=== PATIENT | female | born 1995 | race African-American/Black ===

== ENCOUNTER 2016-10-14 19:12 | Emergency (ER) | payer OTHER ==
[~2016-10-14] VITALS: Ht 162.6 cm; Wt 61.2 kg
[~2016-10-14 19:12] MED LIST: IBUPROFEN600 MG ORAL; KEFLEX500 MG ORAL; MACROBID100 MG ORAL; METRONIDAZOLE500 MG ORAL; NKM; PRENATAL 19 CH1 EAC1 PO; ZOFRAN ODT4 MG ORAL
[2016-10-14 19:37] VITALS: BP 118/65
[2016-10-14 21:56] LABS: APPEARANCE,URINE CLEAR; KETONES,URINE NEGATIVE (NEGATIVE); LEUKOCYTE ESTERASE ,URINE 2+ (NEGATIVE); NITRITE,URINE NEGATIVE (NEGATIVE); PH,URINE 7 (4.5-8.0); PROTEIN,URINE NEGATIVE (NEGATIVE); UROBILINOGEN,URINE NORMAL MG/DL (0.0-1.0)
--- NOTE | 2016-10-14 22:00 | Emergency Room Report ---
History of Present Illness General Chief Complaint: Vaginal Source: Patient, Medical Record Present Illness HPI 21 YO Female Patient c/o vaginal d/c milky white with odor x 3 weeks, denies recent unprotected intercourse, or new partners. She denies nausea, vomiting, fevers, chills, rashes, dyspareunia, . Patient states she is finishing her period currently. Patient reports intermittent malodor. Denies itching, lesions or history of STI's. Denies dysuria, frequency, hematuria, urgency. Denies CP, Palpitations, LOC, AMS, dizziness, Changes in Vision, Sensation, paresthesias, or a sudden severe headache. Allergies: Coded Allergies: No Known Allergies (Unverified , 09/18/12) Patient History Past Medical History: see triage record Past Surgical History: none Pertinent Family History: none Last Menstrual Period: 10/10/16 Now: No Immunizations: UTD Reviewed Nursing Documentation: PMH: Agreed, PSxH: Agreed Nursing Documentation-PMH Past Medical History: No History, Except For Review of Systems All Other Systems: negative except mentioned in HPI Physical Exam Vital Signs Date Time Temp Pulse Resp B/P Pulse Ox O2 Delivery O2 Flow Rate FiO2 10/14/16 19:33 97.9 71 16 118/65 100 Room Air Sp02 EP Interpretation: reviewed, normal General Appearance: no apparent distress, alert, GCS 15, non-toxic Head: normocephalic, atraumatic Eyes: bilateral eye PERRL, bilateral eye normal inspection ENT: hearing grossly normal, normal pharynx, no angioedema, normal voice Neck: full range of motion, supple/symm/no masses Respiratory: chest non-tender, lungs clear, normal breath sounds, speaking full sentences Cardiovascular #1: regular rate, rhythm, no edema Gastrointestinal: normal bowel sounds, non tender, soft, no guarding, no rebound Rectal: deferred Genitourinary: normal inspection, no CVA tenderness, adnexa normal, cervix normal, ext genitalia/vag normal, os closed, other - dark blood and milky white vaginal d/c noted, no strawberry cervix, no CMT Musculoskeletal: back normal, gait/station normal, normal range of motion, non- tender, no calf tenderness Neurologic: alert, oriented x3, responsive, motor strength/tone normal, sensory intact, speech normal Psychiatric: judgement/insight normal, memory normal, mood/affect normal, no suicidal/homicidal ideation Skin: normal color, no rash, warm/dry, well hydrated Lymphatic: no adenopathy Medical Decision Making PA Attestation Dr. Aldridge is my supervising Physician whom patient management has been discussed with. Diagnostic Impression: Primary Impression: Bacterial vaginosis ER Course Pt. presents to the ED c/o vaginal d/c milky white with odor x 3 weeks, denies recent unprotected intercourse, or new partners. Ddx considered but are not limited to UTi , STI, G & C, trichomonas,BV, Vaginitis, cervicitis, or cellulitis. Vital signs: are WNL, pt. is afebrile H&PE are most consistent with vaginitis ORDERS: - HCG:negative -UA: no evidence of urinary tract infection. -Vaginal wet Mount: moderate clue cells, no yeast, no trich, bacteria is noted. ED INTERVENTIONS: -none required at this time d/w pt. the results of laboratory work. -d/w pt not to drink ETOH while taking antibiotic. DISCHARGE: At this time pt. is stable for d/c to home. Will provide printed patient care instructions, and any necessary prescriptions. Care plan and follow up instructions have been discussed with the patient prior to discharge. Labs Test 10/14/16 21:25 Urine Color Pale yellow Urine Appearance Clear Urine pH 7 (4.5-8.0) Urine Specific [place] 1.005 (1.005-1.035) Urine Protein Negative (NEGATIVE) Urine Glucose (UA) Negative (NEGATIVE) Urine Ketones Negative (NEGATIVE) Urine Occult Blood 2+ (NEGATIVE) Urine Nitrite Negative (NEGATIVE) Urine Bilirubin Negative (NEGATIVE) Urine Urobilinogen Normal MG/DL (0.0-1.0) Urine Leukocyte Esterase 2+ (NEGATIVE) Urine RBC 2-4 /HPF (0 - 2) Urine WBC 5-10 /HPF (0 - 2) Urine Squamous Epithelial Cells Moderate /LPF (NONE/OCC) Urine Bacteria Few /HPF (NONE) Urine HCG, Qualitative Negative Last Vital Signs Date Time Temp Pulse Resp B/P Pulse Ox O2 Delivery O2 Flow Rate FiO2 10/14/16 19:37 97.9 16 118/65 100 Room Air 10/14/16 19:33 71 Disposition: HOME, SELF-CARE Condition: Stable Scripts Metronidazole* (FLAGYL*) 500 Mg Tablet 500 MG ORAL BID, #14 TAB 0 Refills Prov: Angela Hamilton 10/14/16 Referrals: [facility] (PCP) Patient Instructions: Bacterial Vaginosis Additional Instructions: Take medications as directed. Follow up with PCP in 3-5 days Return sooner to ED if new symptoms occur, or current symptoms become worse. Do not drink alcohol while taking metronidazole/flagyl Angela Hamilton Oct 14, 2016 22:00
[2016-10-14 22:12] LABS: BACTERIA,URINE FEW /HPF; SQUAMOUS EPITHELIAL CELL,UR MODERATE /LPF (NONE/OCC)
[2016-10-14] MEDS ORDERED: METRONIDAZOLE500 MG ORAL (22:21)
[2016-10-14 22:38] VITALS: BP 105/53
== END 2016-10-14 22:41 | disposition home or self-care (01) ==
LOC: EMR 20:24
DX: N76.0 Acute vaginitis (principal)
CPT/HCPCS: 81003; 81025; 87210; 99282

== ENCOUNTER 2017-02-24 13:51 | Emergency (ER) | payer OTHER ==
[~2017-02-24] VITALS: Ht 162.6 cm; Wt 61.2 kg
[2017-02-24] MEDS ORDERED: Bacitracin Oint UD TOPIC ONE (14:15)
[2017-02-24] MEDS ORDERED: Lidocaine 1% 10mg/ml/Epi 0.005mg/ml 30ml vial INJ ONE (14:15)
[2017-02-24] MEDS ORDERED: TdaP Vaccine 0.5ml Syr IM ONE (14:15)
--- NOTE | 2017-02-24 15:12 | Diagnostic Imaging Report ---
Indication: PAIN head trauma, laceration to frontal region Technique: Continuous helical CT scanning of the head was performed without intravenous contrast material. Axial and coronal 5 mm sections were generated. Radiation dose was minimized using automated exposure control Dose: Total Dose Length Product - DLP [address] Dose Index - CTDIvol(s) 70.38 mGy. Comparison: None Findings: The ventricular system is normal in size and configuration. There is no shift of midline structures. No abnormal extra-axial fluid collections are noted. There is no evidence of intracerebral bleeding. No other abnormal high or low density areas are noted within the brain. There is a right frontal scalp laceration. No underlying calvarial abnormality. Visualized orbits and sinuses are unremarkable. Impression: Normal CT scan of the head without contrast material. Evidence of right supraorbital scalp soft tissue trauma The CT scanner at [facility] is accredited by the [employer] and the scans are performed using protocols designed to limit radiation exposure to as low as reasonably achievable to attain images of sufficient resolution adequate for diagnostic evaluation.
[2017-02-24] MEDS ORDERED: BACITRACIN15 GM TOPIC (15:53)
[2017-02-24 16:01] VITALS: BP 107/68
--- NOTE | 2017-02-24 21:40 | Emergency Room Report ---
History of Present Illness General Chief Complaint: Laceration Source: Patient Present Illness HPI The patient is a 21-year-old female presenting for head pain and laceration. the patient states that she ran into a metal pole today. The patient does admit to loss of consciousness but is unsure of how long. Pain is a 10 out of 10 dull ache and does not radiate. Pain worse with touch. She denies other symptoms including nausea or vomiting. She denies F, chills, dizziness, blurred vision, neck pain Allergies: Coded Allergies: No Known Allergies (Unverified , 09/18/12) Patient History Past Medical History: see triage record Pertinent Family History: none Last Menstrual Period: 02/20/17 Now: No Reviewed Nursing Documentation: PMH: Agreed, PSxH: Agreed Nursing Documentation-PMH Past Medical History: No Stated History Review of Systems All Other Systems: negative except mentioned in HPI Physical Exam Vital Signs Date Time Temp Pulse Resp B/P Pulse Ox O2 Delivery O2 Flow Rate FiO2 02/24/17 13:58 99.7 107 16 111/68 98 Room Air Sp02 EP Interpretation: reviewed, normal General Appearance: no apparent distress, alert, GCS 15, non-toxic Head: normocephalic, atraumatic Eyes: bilateral eye PERRL, bilateral eye normal inspection ENT: hearing grossly normal, normal pharynx, no angioedema, normal voice Neck: full range of motion, supple/symm/no masses Musculoskeletal: back normal, gait/station normal, normal range of motion, non- tender Neurologic: alert, oriented x3, responsive, motor strength/tone normal, sensory intact, speech normal Psychiatric: judgement/insight normal, memory normal, mood/affect normal, no suicidal/homicidal ideation Skin: laceration - 4cm linear laceration to mid forehead Lymphatic: no adenopathy Procedures Laceration/Wound Repair Laceration/Wound Repair : Consent: Verbal Wound Location: face Wound's Depth, Shape: into muscle, linear Wound Length (cm): 4 Wound Explored: clean Irrigated w/ Saline (ccs): 200 Betadine Prep?: Yes Anesthesia: 1% Lidocaine, Lidocaine w/ Epi Volume Anesthetic (ccs): 4 Wound Debrided: minimal Wound Repaired With: sutures Suture Size/Type: 6:0, proline Number of Sutures: 5 Layer Closure?: No Sterile Dressing Applied?: Yes Splint Applied?: No Sling Applied?: No Patient Tolerated: Well Complications: None Medical Decision Making PA Attestation Dr. Redding is my supervising physician. Patient management was discussed with my supervising physician Diagnostic Impression: Primary Impression: Facial laceration Qualified Codes: S01.81XA - Laceration without foreign body of other part of head, initial encounter ER Course The patient is a 21-year-old female presenting for head pain and laceration Ddx considered include but not limited to fracture, tendon/ligament injury, avulsion, nerve damage PE: vitals WNL. NAD Head is NC/AT. No best sign or raccoon eyes There is a 4cm linear laceration to the mid forehead. Minimal bleeding. Head CT unremarkable. Pt given Tetanus vaccination The wound was irrigated with normal saline and cleaned with betadine. A 27g needle was used to administer 4mL of lidocaine w. epi for local anaesthesia. 4 sutures were placed with 6-0 Nylon. The wound was well approximated and the patient tolerated the procedure well. The wound was then cleaned and bacitracin was applied. The patient is discharged home and will follow up with PMD. ER precautions are given Last Vital Signs Date Time Temp Pulse Resp B/P Pulse Ox O2 Delivery O2 Flow Rate FiO2 02/24/17 16:01 98.3 76 14 107/68 100 02/24/17 16:01 Room Air Status: improved Disposition: HOME, SELF-CARE Condition: Improved Scripts Bacitracin (Bacitracin) 28.4 Gm Oint...g. 1 APPLIC TOPIC THREE TIMES A DAY, #28 GM Prov: RC THOMPSON 02/24/17 Patient Instructions: Facial Laceration Additional Instructions: I discussed my findings with the patient. All questions and concerns have been answered. Treatment and medication compliance have been addressed. I advised the patient that they need to follow up with PMD in 5-7 days for wound check and suture removal. If you are unable to see PMD, return to the ED in 5-7 days. Return to ED if pain remains or worsens, you notice discharge from the wound, the wound continues to bleed, the suture/s fall out, you notice a fever or chills, or for any reason. Patient is advised to keep the wound clean and apply an antibacterial ointment. Patient verbalized understanding of discharge instructions. RC THOMPSON February 24, 2017 21:40
== END 2017-02-24 16:08 | disposition home or self-care (01) ==
LOC: EMR 14:15
DX: S01.81XA Laceration without foreign body of other part of head, initial encounter (principal); W22.8XXA Striking against or struck by other objects, initial encounter; Y93.9 Activity, unspecified; Y92.9 Unspecified place or not applicable; Z23 Encounter for immunization
CPT/HCPCS: 12052; 70450; 90471; 90715; 96372; 99284; Z7502

== ENCOUNTER 2017-03-03 16:53 | Emergency (ER) | payer OTHER ==
[~2017-03-03] VITALS: Ht 162.6 cm; Wt 61.2 kg
[~2017-03-03 16:53] MED LIST changes: +BACITRACIN15 GM TOPIC
[2017-03-03 17:39] VITALS: BP 109/61
--- NOTE | 2017-03-03 17:50 | Emergency Room Report ---
History of Present Illness General Chief Complaint: Wound Recheck/Suture Removal Source: Patient Present Illness [facility] The patient is a 21-year-old female presenting for suture removal. He should have a laceration of the right forehead and sutures were placed one week prior. She denies any complications. She denies bleeding, pain, discharge. She denies any other symptoms including nausea, vomiting, fever, chills, headache Allergies: Coded Allergies: No Known Allergies (Unverified , 09/18/12) Patient History Past Medical History: see triage record Pertinent Family History: none Last Menstrual Period: 03/01/17 Now: No Reviewed Nursing Documentation: PMH: Agreed, PSxH: Agreed Nursing Documentation-PMH Past Medical History: No Stated History Review of Systems All Other Systems: negative except mentioned in HPI Physical Exam Vital Signs Date Time Temp Pulse Resp B/P Pulse Ox O2 Delivery O2 Flow Rate FiO2 03/03/17 17:11 98.4 78 16 109/61 100 Room Air Sp02 EP Interpretation: reviewed, normal General Appearance: no apparent distress, alert, GCS 15, non-toxic Head: normocephalic, atraumatic, other - [address] R forehead Eyes: bilateral eye PERRL, bilateral eye normal inspection ENT: hearing grossly normal, normal pharynx, no angioedema, normal voice Neurologic: alert, oriented x3, responsive, motor strength/tone normal, sensory intact, speech normal Psychiatric: judgement/insight normal, memory normal, mood/affect normal, no suicidal/homicidal ideation Skin: normal color, no rash, warm/dry, well hydrated, wd healing/no infection noted Lymphatic: no adenopathy Medical Decision Making PA Attestation Dr. Zhong is my supervising physician. Patient management was discussed with my supervising physician Diagnostic Impression: Primary Impression: Encounter for removal of sutures Additional Impression: Encounter for wound re-check ER Course The patient is a 21-year-old female presenting for suture removal PE: vitals WNL. [address] R forehead. No bleeding. no DC. Well approximated. No erythema. Suture removal: 5 simple interrupted sutures were removed without complication. No bleeding or discharge. Wound is well approximated. No surrounding erythema. The patient to be discharged home. ER precautions given Last Vital Signs Date Time Temp Pulse Resp B/P Pulse Ox O2 Delivery O2 Flow Rate FiO2 03/03/17 17:39 98.4 16 109/61 100 Room Air 03/03/17 17:11 78 Status: improved Disposition: HOME, SELF-CARE Condition: Improved RC THOMPSON March 03, 2017 17:50
[2017-03-03 17:54] VITALS: BP 109/61
== END 2017-03-03 17:54 | disposition home or self-care (01) ==
LOC: EMR 17:54
DX: Z48.02 Encounter for removal of sutures (principal)
CPT/HCPCS: 99281

== ENCOUNTER 2017-04-17 11:23 | Emergency (ER) | payer OTHER ==
[~2017-04-17] VITALS: Ht 162.6 cm; Wt 61.2 kg
[2017-04-17 11:46] VITALS: BP 99/67
[2017-04-17 12:13] LABS: APPEARANCE,URINE CLEAR; KETONES,URINE NEGATIVE (NEGATIVE); LEUKOCYTE ESTERASE ,URINE 1+ (NEGATIVE); NITRITE,URINE NEGATIVE (NEGATIVE); PH,URINE 8 (4.5-8.0); PROTEIN,URINE NEGATIVE (NEGATIVE); UROBILINOGEN,URINE NORMAL MG/DL (0.0-1.0)
[2017-04-17 12:23] LABS: BACTERIA,URINE FEW /HPF; RBC,URINE 0-2 /HPF (0 - 2); SQUAMOUS EPITHELIAL CELL,UR FEW /LPF (NONE/OCC)
[2017-04-17] MEDS ORDERED: FLAGYL500 MG ORAL (12:32)
[2017-04-17 12:38] VITALS: BP 99/67
--- NOTE | 2017-04-17 12:43 | Emergency Room Report ---
History of Present Illness General Chief Complaint: Female Urogenital Problems Source: Patient Present Illness [facility] The patient is a 21-year-old female presenting for lower abdominal pain and vaginal discharge which began 2 days prior. Pain is described as a 5/10 dull ache and does not radiate. No known provoking or relieving factors. Described as white to clear. No malodor. She has had BV in the past which feels the same. She denies any other symptoms including N, V, F, chills, back pain, rash Allergies: Coded Allergies: No Known Allergies (Unverified , 09/18/12) Patient History Past Medical History: see triage record Pertinent Family History: none Reviewed Nursing Documentation: PMH: Agreed, PSxH: Agreed Nursing Documentation-PMH Past Medical History: No Stated History Review of Systems All Other Systems: negative except mentioned in HPI Physical Exam Vital Signs Date Time Temp Pulse Resp B/P Pulse Ox O2 Delivery O2 Flow Rate FiO2 04/17/17 11:27 98.4 72 20 99/67 100 Sp02 EP Interpretation: reviewed, normal General Appearance: no apparent distress, alert, GCS 15, non-toxic Head: normocephalic, atraumatic Eyes: bilateral eye PERRL, bilateral eye normal inspection ENT: hearing grossly normal, normal pharynx, no angioedema, normal voice Respiratory: chest non-tender, lungs clear, normal breath sounds, speaking full sentences Cardiovascular #1: regular rate, rhythm, no edema Gastrointestinal: normal inspection, normal bowel sounds, soft, no mass, no guarding, tenderness - suprapubic Genitourinary: normal inspection, no CVA tenderness Musculoskeletal: back normal, gait/station normal, normal range of motion, non- tender Neurologic: alert, oriented x3, responsive, motor strength/tone normal, sensory intact, speech normal Psychiatric: judgement/insight normal, memory normal, mood/affect normal, no suicidal/homicidal ideation Skin: normal color, no rash, warm/dry, well hydrated Medical Decision Making PA Attestation Dr. Aldridge is my supervising physician. Patient management was discussed with my supervising physician Diagnostic Impression: Primary Impression: Bacterial vaginosis ER Course The patient is a 21-year-old female presenting for lower abdominal pain and vaginal discharge Differential diagnosis considered but not limited to: UTI, vaginitis, pyelonephritis, , fibroids, among others PE; vitals WNL. NAD Abd is soft. TTP only over suprapubic region UA not consistent with UTI Pt is given a prescription for flagyl and will FU with PMD ER precautions given Laboratory Tests Test 04/17/17 11:30 Urine Color Pale yellow Urine Appearance Clear Urine pH 8 (4.5-8.0) Urine Specific [place] 1.010 (1.005-1.035) Urine Protein Negative (NEGATIVE) Urine Glucose (UA) Negative (NEGATIVE) Urine Ketones Negative (NEGATIVE) Urine Occult Blood Negative (NEGATIVE) Urine Nitrite Negative (NEGATIVE) Urine Bilirubin Negative (NEGATIVE) Urine Urobilinogen Normal MG/DL (0.0-1.0) Urine Leukocyte Esterase 1+ (NEGATIVE) H Urine RBC 0-2 /HPF (0 - 2) Urine WBC 2-4 /HPF (0 - 2) Urine Squamous Epithelial Cells Few /LPF (NONE/OCC) Urine Bacteria Few /HPF (NONE) Urine HCG, Qualitative Negative Lab Results Impression Not consistent with UTI Last Vital Signs Date Time Temp Pulse Resp B/P Pulse Ox O2 Delivery O2 Flow Rate FiO2 04/17/17 11:46 98.4 20 99/67 100 04/17/17 11:27 72 Status: improved Disposition: HOME, SELF-CARE Condition: Improved Scripts Metronidazole* (FLAGYL*) 500 Mg Tablet 500 MG ORAL BID, #14 TAB Prov: RC THOMPSON 04/17/17 Referrals: [facility]ERR[facility] (PCP) Patient Instructions: Bacterial Vaginosis Additional Instructions: I discussed my findings with the patient. All questions and concerns have been answered. Treatment and medication compliance have been addressed. I advised the patient that they need to follow up with PMD in 3-5 days. Return to ED if symptoms worsen, new symptoms arise, or if needed for any reason. Patient verbalized understanding of discharge instructions. RC THOMPSON Apr 17, 2017 12:43
== END 2017-04-17 12:39 | disposition home or self-care (01) ==
LOC: EMR 12:21
DX: N76.0 Acute vaginitis (principal)
CPT/HCPCS: 81003; 81025; 99283

== ENCOUNTER 2017-04-30 14:10 | Emergency (ER) | payer OTHER ==
[~2017-04-30] VITALS: Ht 162.6 cm; Wt 59.0 kg
[~2017-04-30 14:10] MED LIST changes: +FLAGYL500 MG ORAL
[2017-04-30 14:22] VITALS: BP 103/76
[2017-04-30] MEDS: Fluconazole 100mg tab ORAL ONE (14:51)
[2017-04-30 15:02] LABS: APPEARANCE,URINE CLEAR; KETONES,URINE NEGATIVE (NEGATIVE); LEUKOCYTE ESTERASE ,URINE 3+ (NEGATIVE); NITRITE,URINE NEGATIVE (NEGATIVE); PH,URINE 7 (4.5-8.0); PROTEIN,URINE NEGATIVE (NEGATIVE); UROBILINOGEN,URINE NORMAL MG/DL (0.0-1.0)
[2017-04-30 15:07] LABS: BACTERIA,URINE FEW /HPF; SQUAMOUS EPITHELIAL CELL,UR MODERATE /LPF (NONE/OCC)
--- NOTE | 2017-04-30 15:17 | Emergency Room Report ---
History of Present Illness General Chief Complaint: Vaginal Source: Patient Present Illness HPI 21 YO Female presents to the emergency department complaining of dysuria and thick white discharge with itching. Patient states she just finished course of Flagyl for BV. Denies nausea, vomiting, fevers, chills, hematuria. Denies recent unprotected intercourse. Denies CP, Palpitations, LOC, AMS, dizziness, Changes in Vision, Sensation, paresthesias, or a sudden severe headache. Allergies: Coded Allergies: No Known Allergies (Unverified , 09/18/12) Patient History Past Medical History: see triage record Past Surgical History: none Pertinent Family History: none Last Menstrual Period: 2-3 months Now: No Immunizations: UTD Reviewed Nursing Documentation: PMH: Agreed, PSxH: Agreed Nursing Documentation-PMH Past Medical History: No History, Except For Review of Systems All Other Systems: negative except mentioned in HPI Physical Exam Vital Signs Date Time Temp Pulse Resp B/P Pulse Ox O2 Delivery O2 Flow Rate FiO2 04/30/17 14:12 98.1 76 18 103/76 98 Room Air Sp02 EP Interpretation: reviewed, normal General Appearance: no apparent distress, alert, GCS 15, non-toxic Head: normocephalic, atraumatic Eyes: bilateral eye PERRL, bilateral eye normal inspection ENT: hearing grossly normal, normal pharynx, no angioedema, normal voice Neck: full range of motion, supple/symm/no masses Respiratory: lungs clear, normal breath sounds, speaking full sentences Cardiovascular #1: regular rate, rhythm, no edema Gastrointestinal: normal bowel sounds, non tender, soft, no guarding, no rebound Rectal: deferred Genitourinary: normal inspection, no CVA tenderness Musculoskeletal: back normal, gait/station normal, normal range of motion, non- tender, no calf tenderness Neurologic: alert, oriented x3, responsive, motor strength/tone normal, sensory intact, speech normal Psychiatric: judgement/insight normal, memory normal, mood/affect normal Skin: normal color, no rash, warm/dry, well hydrated Lymphatic: no adenopathy Medical Decision Making PA Attestation Dr. Sanchez is my supervising Physician whom patient management has been discussed with. Diagnostic Impression: Primary Impression: UTI (urinary tract infection) Qualified Codes: N30.00 - Acute cystitis without hematuria Additional Impression: Vaginitis Qualified Codes: N76.0 - Acute vaginitis ER Course 21 YO Female presents to the emergency department complaining of dysuria and thick white discharge with itching. Patient states she just finished course of Flagyl for BV. Denies nausea, vomiting, fevers, chills, hematuria. Denies recent unprotected intercourse. Denies CP, Palpitations, LOC, AMS, dizziness, Changes in Vision, Sensation, paresthesias, or a sudden severe headache. Ddx considered but are not limited to UTi , Pyelo, STI, Stone, Cystitis Vital signs: are WNL, pt. is afebrile H&PE are most consistent with UTI and vaginitis from recent abx use. ORDERS: - UA labs are attached : elevated wbc's and leuks with bacteria indicative of UTI ED INTERVENTIONS: -Diflucan PO DISCHARGE: At this time pt. is stable for d/c to home. Will provide printed patient care instructions, and any necessary prescriptions. Care plan and follow up instructions have been discussed with the patient prior to discharge. Labs Test 04/30/17 14:42 Urine Color Pale yellow Urine Appearance Clear Urine pH 7 (4.5-8.0) Urine Specific [place] 1.010 (1.005-1.035) Urine Protein Negative (NEGATIVE) Urine Glucose (UA) Negative (NEGATIVE) Urine Ketones Negative (NEGATIVE) Urine Occult Blood 1+ (NEGATIVE) Urine Nitrite Negative (NEGATIVE) Urine Bilirubin Negative (NEGATIVE) Urine Urobilinogen Normal MG/DL (0.0-1.0) Urine Leukocyte Esterase 3+ (NEGATIVE) Urine RBC 2-4 /HPF (0 - 2) Urine WBC 10-15 /HPF (0 - 2) Urine Squamous Epithelial Cells Moderate /LPF (NONE/OCC) Urine Bacteria Few /HPF (NONE) Last Vital Signs Date Time Temp Pulse Resp B/P Pulse Ox O2 Delivery O2 Flow Rate FiO2 04/30/17 14:22 98.1 18 103/76 98 Room Air 04/30/17 14:12 76 Disposition: HOME, SELF-CARE Condition: Stable Scripts Miconazole Nitrate (Monistat 3) 15 Gm Crm.pf.delia 5 GM VG DAILY for 3 Days, #15 GM Prov: Angela Hamilton P.A. 04/30/17 Nitrofurantoin Monohyd/M-Cryst* (MACROBID 100 MG*) 100 Mg Capsule 100 MG ORAL EVERY 12 HOURS for 5 Days, #10 CAP Prov: Angela Hamilton 04/30/17 Referrals: [facility],REFERR[facility] (PCP) Patient Instructions: Urinary Tract Infection, [id number] Additional Instructions: Take medications as directed. Follow up with a Primary Care Provider in 3-5 days, even if your symptoms have resolved. --Please review list of primary care clinics, if you do not already have a primary care provider Return sooner to ED if new symptoms occur, or current symptoms become worse. - Please note that this Emergency Department Report was dictated using [employer] cloth finishing range operator technology software, occasionally this can lead to erroneous entry secondary to interpretation by the dictation equipment. Angela Hamilton Apr 30, 2017 15:17
[2017-04-30] MEDS ORDERED: NITROFURANTOIN100 M2 ORAL (15:20)
[2017-04-30] MEDS ORDERED: MONISTAT 35 GM VG (15:20)
[2017-04-30 15:29] VITALS: BP 117/75
== END 2017-04-30 15:34 | disposition home or self-care (01) ==
LOC: EMR 14:45
DX: N39.0 Urinary tract infection, site not specified (principal); N76.0 Acute vaginitis
CPT/HCPCS: 81003; 87086; 99284

== ENCOUNTER 2017-05-11 12:15 | Emergency (ER) | payer OTHER ==
[~2017-05-11] VITALS: Ht 162.6 cm; Wt 61.2 kg
[~2017-05-11 12:15] MED LIST changes: +MONISTAT 35 GM VG; +NITROFURANTOIN100 M2 ORAL
[2017-05-11] MEDS ORDERED: Fluconazole 100mg tab ORAL ONE (13:15)
--- NOTE | 2017-05-11 13:18 | Emergency Room Report ---
History of Present Illness General Chief Complaint: Female Urogenital Problems Source: Patient Present Illness HPI 21 YO Female presents to the ED c/o vaginal irritation/ discomfort, described as external burning and itching after recently taking abx for UTI x 5 days. Pt. denies vaginal d/c. pt. states her previous urinary symptoms have resolved. denies fevers or chills. pt. reports mild external swelling, denies lesions, blisters, rashes or swollen palpable lymph nodes. Denies abdominal pain or tenderness. denies , states she just had her cycle earlier this week. Denies CP, Palpitations, LOC, AMS, dizziness, Changes in Vision, Sensation, paresthesias, or a sudden severe headache. Allergies: Coded Allergies: No Known Allergies (Unverified , 09/18/12) Patient History Past Medical History: see triage record Past Surgical History: none Pertinent Family History: none Last Menstrual Period: 05/07/17 Now: No : 0 Para: 0 Immunizations: UTD Reviewed Nursing Documentation: PMH: Agreed, PSxH: Agreed Nursing Documentation-PMH Past Medical History: No History, Except For Review of Systems All Other Systems: negative except mentioned in HPI Physical Exam Vital Signs Date Time Temp Pulse Resp B/P Pulse Ox O2 Delivery O2 Flow Rate FiO2 05/11/17 12:51 98.1 86 18 92/56 99 Room Air Sp02 EP Interpretation: reviewed, normal General Appearance: no apparent distress, alert, GCS 15, non-toxic Head: normocephalic, atraumatic Eyes: bilateral eye PERRL, bilateral eye normal inspection ENT: hearing grossly normal, normal pharynx, no angioedema, normal voice Neck: full range of motion, supple/symm/no masses Respiratory: lungs clear, normal breath sounds, speaking full sentences Cardiovascular #1: regular rate, rhythm, no edema Gastrointestinal: non tender, soft, no guarding Rectal: deferred Genitourinary: normal inspection, no CVA tenderness Musculoskeletal: back normal, gait/station normal, normal range of motion Neurologic: alert, oriented x3, responsive, motor strength/tone normal, sensory intact, speech normal Psychiatric: judgement/insight normal, memory normal, mood/affect normal Skin: normal color, no rash, warm/dry, well hydrated Lymphatic: no adenopathy Medical Decision Making PA Attestation Dr. Redding is my supervising Physician whom patient management has been discussed with. Diagnostic Impression: Primary Impression: Vaginitis Qualified Codes: N76.0 - Acute vaginitis ER Course 21 YO Female presents to the ED c/o vaginal irritation/ discomfort, described as external burning and itching after recently taking abx for UTI x 5 days. Pt. denies vaginal d/c. pt. states her previous urinary symptoms have resolved. denies fevers or chills. pt. reports mild external swelling, denies lesions, blisters, rashes or swollen palpable lymph nodes. Denies abdominal pain or tenderness. denies , states she just had her cycle earlier this week. Denies CP, Palpitations, LOC, AMS, dizziness, Changes in Vision, Sensation, paresthesias, or a sudden severe headache. Ddx considered but are not limited to UTi , Pyelo, STI, Stone, Cystitis, vaginal laceration, vaginitis. Vital signs: are WNL, pt. is afebrile H& PE are most consistent with: yeast vaginitis secondary to recent oral abx use. ORDERS: - UA labs are attached : WNL no evidence of infection, previous infection has cleared. ED INTERVENTIONS: Diflucan PO DISCHARGE: At this time pt. is stable for d/c to home. Will provide printed patient care instructions, and any necessary prescriptions. Care plan and follow up instructions have been discussed with the patient prior to discharge. Labs Test 05/11/17 13:15 Urine Color Yellow Urine Appearance Slightly cloudy Urine pH 6 (4.5-8.0) Urine Specific [place] 1.015 (1.005-1.035) Urine Protein Negative (NEGATIVE) Urine Glucose (UA) Negative (NEGATIVE) Urine Ketones Negative (NEGATIVE) Urine Occult Blood 1+ (NEGATIVE) Urine Nitrite Negative (NEGATIVE) Urine Bilirubin Negative (NEGATIVE) Urine Urobilinogen Normal MG/DL (0.0-1.0) Urine Leukocyte Esterase 2+ (NEGATIVE) Urine RBC 0-2 /HPF (0 - 2) Urine WBC 2-4 /HPF (0 - 2) Urine Squamous Epithelial Cells Few /LPF (NONE/OCC) Urine Bacteria Occasional /HPF (NONE) Last Vital Signs Date Time Temp Pulse Resp B/P Pulse Ox O2 Delivery O2 Flow Rate FiO2 05/11/17 12:51 98.1 86 18 92/56 99 Room Air Disposition: HOME, SELF-CARE Condition: Stable Scripts Fluconazole (FLUCONAZOLE) 100 Mg Tablet 100 MG ORAL DAILY for 3 Days, #3 TAB 0 Refills Prov: Angela Hamilton 05/11/17 Referrals: [facility],REFERR[facility] (PCP) Patient Instructions: Vaginitis Additional Instructions: Take medications as directed. Follow up with a Primary Care Provider in 3-5 days, even if your symptoms have resolved. --Please review list of primary care clinics, if you do not already have a primary care provider Return sooner to ED if new symptoms occur, or current symptoms become worse. - Please note that this Emergency Department Report was dictated using Newvempol[employer] director technology software, occasionally this can lead to erroneous entry secondary to interpretation by the dictation equipment. Angela Hamilton May 11, 2017 13:18
[2017-05-11] MEDS ORDERED: FLUCONAZOLE100 MG ORAL (13:19)
[2017-05-11 13:29] VITALS: BP 97/59
[2017-05-11 13:39] LABS: APPEARANCE,URINE SLIGHTLY CLOUDY; KETONES,URINE NEGATIVE (NEGATIVE); LEUKOCYTE ESTERASE ,URINE 2+ (NEGATIVE); NITRITE,URINE NEGATIVE (NEGATIVE); PH,URINE 6 (4.5-8.0); PROTEIN,URINE NEGATIVE (NEGATIVE); UROBILINOGEN,URINE NORMAL MG/DL (0.0-1.0)
[2017-05-11 13:54] LABS: BACTERIA,URINE OCCASIONAL /HPF; RBC,URINE 0-2 /HPF (0 - 2); SQUAMOUS EPITHELIAL CELL,UR FEW /LPF (NONE/OCC)
== END 2017-05-11 13:30 | disposition home or self-care (01) ==
LOC: EMR 12:43
DX: N76.0 Acute vaginitis (principal)
CPT/HCPCS: 81003; 99283

== ENCOUNTER 2017-08-26 14:24 | Emergency (ER) | payer SELFPAY ==
[~2017-08-26] VITALS: Ht 162.6 cm; Wt 61.2 kg
[~2017-08-26 14:24] MED LIST changes: +FLUCONAZOLE100 MG ORAL
[2017-08-26 16:47] LABS: APPEARANCE,URINE CLEAR; KETONES,URINE NEGATIVE (NEGATIVE); LEUKOCYTE ESTERASE ,URINE 1+ (NEGATIVE); NITRITE,URINE NEGATIVE (NEGATIVE); PROTEIN,URINE NEGATIVE (NEGATIVE); UROBILINOGEN,URINE NORMAL MG/DL (0.0-1.0)
[2017-08-26 16:51] LABS: BACTERIA,URINE OCCASIONAL /HPF; SQUAMOUS EPITHELIAL CELL,UR MODERATE /LPF (NONE/OCC); WBC,URINE 0-2 /HPF (0 - 2)
[2017-08-26] MEDS ORDERED: Metoclopramide 10mg/10ml Liq ORAL ONE (17:00)
--- NOTE | 2017-08-26 17:40 | Emergency Room Report ---
History of Present Illness General Chief Complaint: Dizziness Source: Patient Present Illness HPI 22 YO Female presents to the ED c/o Having syncopal episode 2 days ago with progressive 10/10 in severity headache with nausea and vomiting. Patient denies blood in the vomit she denies abdominal pain, fevers, chills. Patient denies visual changes. Patient states she was at a club she was not drinking she was sitting down and after getting up several minutes later she felt as though she was going to faint she states that she became lightheaded and felt weak in the legs she denies palpitations she reports that she began to lower herself to the ground when she loss consciousness. There was witnessed by her friends. She denies previous episodes of syncope denies history of seizures denies bleeding in the mouth or accidentally biting her tongue. Patient denies drug use she denies denies recent illness or symptoms that may have caused dehydration.Denies CP, Palpitations, AMS, Changes in Vision, Sensation, paresthesias, or a sudden severe headache. Allergies: Coded Allergies: No Known Allergies (Unverified , 09/18/12) Patient History Past Medical History: see triage record Past Surgical History: none Pertinent Family History: none Last Menstrual Period: 08/25/17 Now: No - unknown : 1 Para: 0 Reviewed Nursing Documentation: PMH: Agreed, PSxH: Agreed Nursing Documentation-PMH Past Medical History: No History, Except For Review of Systems All Other Systems: negative except mentioned in HPI Physical Exam Vital Signs Date Time Temp Pulse Resp B/P (MAP) Pulse Ox O2 Delivery O2 Flow Rate FiO2 08/26/17 15:16 98.1 85 20 118/73 99 Room Air Sp02 EP Interpretation: reviewed, normal General Appearance: no apparent distress, alert, GCS 15, non-toxic Head: normocephalic, atraumatic Eyes: bilateral eye normal inspection, bilateral eye PERRL, bilateral eye EOMI ENT: hearing grossly normal, normal voice Neck: full range of motion Respiratory: chest non-tender, lungs clear, normal breath sounds, no respiratory distress, no wheezing, speaking full sentences Cardiovascular #1: regular rate, rhythm Cardiovascular #2: 2+ radial (R), 2+ radial (L) Gastrointestinal: non tender, soft Rectal: deferred Musculoskeletal: back normal, gait/station normal, normal range of motion, tender - TTP to the occipital scalp Neurologic: alert, oriented x3, responsive, motor strength/tone normal, sensory intact, normal gait, speech normal, no pronator, other - no facial droop , equal supervisor chlorine liquefaction strength Skin: normal color, no rash, warm/dry, well hydrated Medical Decision Making PA Attestation Dr. Redding is my supervising Physician whom patient management has been discussed with. Diagnostic Impression: Primary Impression: Syncope Qualified Codes: R55 - Syncope and collapse Additional Impressions: Head ache Qualified Codes: R51 - Headache Dehydration, mild ER Course 22 YO Female presents to the ED c/o Having syncopal episode 2 days ago with progressive 10/10 in severity headache with nausea and vomiting. Patient denies blood in the vomit she denies abdominal pain, fevers, chills. Patient denies visual changes. Patient states she was at a club she was not drinking she was sitting down and after getting up several minutes later she felt as though she was going to faint she states that she became lightheaded and felt weak in the legs she denies palpitations she reports that she began to lower herself to the ground when she loss consciousness. There was witnessed by her friends. She denies previous episodes of syncope denies history of seizures denies bleeding in the mouth or accidentally biting her tongue. Patient denies drug use she denies denies recent illness or symptoms that may have caused dehydration.Denies CP, Palpitations, AMS, Changes in Vision, Sensation, paresthesias, or a sudden severe headache. Ddx considered but are not limited to dysrhythmia, methamphetamine, hypoglycemia , hypovolemia, , intracranial process, vasovagal. Vital signs: are WNL, pt. is afebrile H&PE are most consistent with syncopal episode ORDERS: -12-lead EK NSR -UDS: Negative -Urine hCG: Negative -UA: WNL -CT HEAD NO CONTRAST: No evidence of acute fracture, hemorrhage, or intracranial process Per official radiology report- Please see report for specific details. ED INTERVENTIONS: -Phenergan PO -Tylenol PO -She had positive orthostatic vital signs- indicating hypovolemia. Patient stated that she wanted to go home and did not want to have IV hydration here in the emergency department. DISCHARGE: At this time pt. is stable for d/c to home. Will provide printed patient care instructions, and any necessary prescriptions. Care plan and follow up instructions have been discussed with the patient prior to discharge. Labs Test 08/26/17 16:10 Urine Color Yellow Urine Appearance Clear Urine pH 8.0 (4.5-8.0) Urine Specific [place] 1.010 (1.005-1.035) Urine Protein Negative (NEGATIVE) Urine Glucose (UA) Negative (NEGATIVE) Urine Ketones Negative (NEGATIVE) Urine Occult Blood Negative (NEGATIVE) Urine Nitrite Negative (NEGATIVE) Urine Bilirubin Negative (NEGATIVE) Urine Urobilinogen Normal MG/DL (0.0-1.0) Urine Leukocyte Esterase 1+ (NEGATIVE) Urine RBC 2-4 /HPF (0 - 2) Urine WBC 0-2 /HPF (0 - 2) Urine Squamous Epithelial Cells Moderate /LPF (NONE/OCC) Urine Bacteria Occasional /HPF (NONE) Urine HCG, Qualitative Negative Urine Opiates Screen Negative (NEGATIVE) Urine Barbiturates Screen Negative (NEGATIVE) Phencyclidine (PCP) Screen Negative (NEGATIVE) Urine Amphetamines Screen Negative (NEGATIVE) Urine Benzodiazepines Screen Negative (NEGATIVE) Urine Cocaine Screen Negative (NEGATIVE) Urine Marijuana (THC) Screen Positive (NEGATIVE) EKG Diagnostic Results EP Interpretation: Dr. Redding Rate: normal Rhythm: NSR ST Segments: no acute changes ASA given to the pt in ED: No PA Scribe Text Interpretation was scribed by SCARLET Hamilton Last Vital Signs Date Time Temp Pulse Resp B/P (MAP) Pulse Ox O2 Delivery O2 Flow Rate FiO2 08/26/17 15:16 98.1 85 20 118/73 99 Room Air Disposition: HOME, SELF-CARE Condition: Stable Scripts Acetaminophen* (TYLENOL EXTRA STRENGTH*) 500 Mg Tablet 500 MG ORAL Q6H, #20 TAB 0 Refills Prov: Angela Hamilton 08/26/17 Patient Instructions: Syncope Additional Instructions: Take medications as directed. Follow up with a Primary Care Provider in 3-5 days, even if your symptoms have resolved. --Please review list of primary care clinics, if you do not already have a primary care provider Return sooner to ED if new symptoms occur, or current symptoms become worse. - Please note that this Emergency Department Report was dictated using [employer]ofro[employer] end spinning operator technology software, occasionally this can lead to erroneous entry secondary to interpretation by the dictation equipment. Angela Hamilton Aug 26, 2017 17:40
[2017-08-26] MEDS ORDERED: TYLENOL EXTRA500 MG ORAL (17:46)
[2017-08-26 17:58] VITALS: BP 111/74
[2017-08-26 18:01] VITALS: BP 111/74
[2017-08-26 19:18] VITALS: BP 111/74
--- NOTE | 2017-08-27 09:15 | Diagnostic Imaging Report ---
Indication: PAIN, syncope Technique: Continuous helical CT scanning of the head was performed without intravenous contrast material. Axial and coronal 5 mm sections were generated. Radiation dose was minimized using automated exposure control Dose: Total Dose Length Product - DLP [address] Dose Index - CTDIvol(s) 70.38 mGy. Comparison: None Findings: The ventricular system is normal in size and configuration. There is no shift of midline structures. No abnormal extra-axial fluid collections are noted. There is no evidence of intracerebral bleeding. No other abnormal high or low density areas are noted within the brain. Polyp versus mucous retention cyst is seen in the right sphenoid sinus. Impression: Normal CT scan of the head without contrast material. Sinus disease This agrees with the preliminary interpretation provided overnight by [facility]. The CT scanner at [facility] is accredited by the [employer] and the scans are performed using protocols designed to limit radiation exposure to as low as reasonably achievable to attain images of sufficient resolution adequate for diagnostic evaluation.
--- NOTE | 2017-08-27 15:58 | Cardiology Report ---
APPROVED REPORT EKG Measurement Heart [id number] Normal sinus rhythm Normal ECG
== END 2017-08-26 19:18 | disposition home or self-care (01) ==
LOC: EMR 15:26
DX: R55 Syncope and collapse (principal); R51 Headache
CPT/HCPCS: 70450; 80307; 81003; 81025; 93005; 99284

== ENCOUNTER 2017-11-16 22:27 | Emergency (ER) | payer OTHER ==
[~2017-11-16] VITALS: Ht 162.6 cm; Wt 61.2 kg
[~2017-11-16 22:27] MED LIST changes: +TYLENOL EXTRA500 MG ORAL
[2017-11-16 23:00] VITALS: BP 99/56
[2017-11-17 00:13] LABS: APPEARANCE,URINE CLEAR; COLOR,URINE YELLOW
[2017-11-17 00:14] LABS: BILIRUBIN, URINE NEGATIVE (NEGATIVE); GLUCOSE, URINE (UA) NEGATIVE (NEGATIVE); KETONES,URINE NEGATIVE (NEGATIVE); LEUKOCYTE ESTERASE ,URINE 1+ (NEGATIVE); NITRITE,URINE NEGATIVE (NEGATIVE); PH,URINE 6 (4.5-8.0); PROTEIN,URINE NEGATIVE (NEGATIVE); UROBILINOGEN,URINE 1 MG/DL (0.0-1.0)
[2017-11-17 01:00] VITALS: BP 102/58
--- NOTE | 2017-11-17 01:45 | Emergency Room Report ---
History of Present Illness General Chief Complaint: Nausea, Vomiting, and Diarrhea Source: Patient Present Illness HPI Patient had vomiting earlier. This has improved. Then noted vaginal d/c with vomiting. No fevers. Thinks she might have eaten something not good. Vaginal d /c white. No abdominal pain. States she is not . No dysuria. Has been treated for bacterial vaginosis. No URI, chest pain, cough, rashes, joint pain, headache. Allergies: Coded Allergies: No Known Allergies (Unverified , 09/18/12) Patient History Past Medical History: see triage record Social History: Reports: smoking Social History Narrative home Last Menstrual Period: 10/19/17 Now: No : 1 Para: 0 Reviewed Nursing Documentation: PMH: Agreed, PSxH: Agreed Nursing Documentation-PMH Past Medical History: No Stated History Review of Systems All Other Systems: negative except mentioned in HPI Physical Exam Vital Signs Date Time Temp Pulse Resp B/P (MAP) Pulse Ox O2 Delivery O2 Flow Rate FiO2 11/16/17 22:33 98.1 74 14 99/56 97 Room Air Sp02 EP Interpretation: reviewed, normal General Appearance: well appearing, no apparent distress, GCS 15 Head: normocephalic, atraumatic Eyes: bilateral eye normal inspection, bilateral eye PERRL ENT: hearing grossly normal, normal voice Neck: full range of motion, supple Respiratory: no respiratory distress, speaking full sentences Cardiovascular #1: regular rate, rhythm Gastrointestinal: normal inspection, non tender, soft, scaphoid Genitourinary: adnexa normal, cervix normal, os closed, uterus normal, other - white d/c Musculoskeletal: gait/station normal Neurologic: alert, normal gait, grossly normal Psychiatric: mood/affect normal Skin: no rash Medical Decision Making Diagnostic Impression: Primary Impression: Bacterial vaginosis Additional Impressions: Yeast vaginitis Vomiting Qualified Codes: R11.2 - Nausea with vomiting, unspecified ER Course Patient presents post episodes of vomiting with vaginal discharge. Ddx: , vaginal d/c - bacterial vs yeast, GItis amongst others. Evaluation with UA, wet mount. Declines need for zofran at this time. UA clear, neg preg. WM with clue cells. Though yeast not seen, nature of d/c c /w monilia. Patient stable for outpatient observation and treatment. Laboratory Tests Test 11/16/17 22:50 Urine Color Yellow Urine Appearance Clear Urine pH 6 (4.5-8.0) Urine Specific [place] 1.020 (1.005-1.035) Urine Protein Negative (NEGATIVE) Urine Glucose (UA) Negative (NEGATIVE) Urine Ketones Negative (NEGATIVE) Urine Occult Blood Negative (NEGATIVE) Urine Nitrite Negative (NEGATIVE) Urine Bilirubin Negative (NEGATIVE) Urine Urobilinogen 1 MG/DL (0.0-1.0) H Urine Leukocyte Esterase 1+ (NEGATIVE) H Urine RBC 0-2 /HPF (0 - 2) Urine WBC 2-4 /HPF (0 - 2) Urine Squamous Epithelial Cells Many /LPF (NONE/OCC) H Urine Bacteria Few /HPF (NONE) Urine HCG, Qualitative Negative Microbiology Date/Time Source Procedure Growth Status 11/17/17 00:50 Vaginal Wet Prep - Final Complete Last Vital Signs Date Time Temp Pulse Resp B/P (MAP) Pulse Ox O2 Delivery O2 Flow Rate FiO2 11/17/17 01:55 98.3 78 14 102/58 98 Room Air Status: improved Disposition: HOME, SELF-CARE Condition: Improved Scripts Ondansetron Odt* (ZOFRAN ODT*) 4 Mg Tab.rapdis 4 MG ORAL Q8H Y for Nausea & Vomiting, #6 TAB 0 Refills Prov: Ras Sylvester M.D. 11/17/17 Clotrimazole (GYNE-LOTRIMIN*) 45 Gm Cream.appl 1 APPLIC VG QHS for 7 Days, #45 GM 0 Refills Prov: Ras Sylvester M.D. 11/17/17 Fluconazole (FLUCONAZOLE) 100 Mg Tablet 100 MG ORAL DAILY, #1 TAB 0 Refills Prov: Ras Sylvester M.D. 11/17/17 Metronidazole* (FLAGYL*) 500 Mg Tablet 500 MG ORAL TID, #21 TAB Prov: Ras Sylvester M.D. 11/17/17 Referrals: [facility],REFERRING (PCP) Ras Sylvester M.D. Nov 17, 2017 01:45
[2017-11-17] MEDS ORDERED: METRONIDAZOLE500 MG ORAL (01:50)
[2017-11-17] MEDS ORDERED: ZOFRAN ODT4 MG ORAL (01:50)
[2017-11-17] MEDS ORDERED: FLUCONAZOLE100 MG ORAL (01:50)
[2017-11-17] MEDS ORDERED: GYNE-LOTRIMIN45 GM VG (01:50)
[2017-11-17 01:55] VITALS: BP 102/58
== END 2017-11-17 01:55 | disposition home or self-care (01) ==
LOC: EMR 23:40
DX: B37.3 Candidiasis of vulva and vagina (principal); N76.0 Acute vaginitis; R11.2 Nausea with vomiting, unspecified; F17.200 Nicotine dependence, unspecified, uncomplicated
CPT/HCPCS: 81003; 81025; 87210; 99284

== ENCOUNTER 2017-11-19 14:18 | Emergency (ER) | payer OTHER ==
[~2017-11-19] VITALS: Ht 162.6 cm; Wt 60.8 kg
[~2017-11-19 14:18] MED LIST changes: +GYNE-LOTRIMIN45 GM VG
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
--- NOTE | 2017-11-19 16:16 | Diagnostic Imaging Report ---
Indication: Pain Findings: 3 views of the left wrist were obtained. No acute fractures, malalignment, erosions or periostitis are identified. Soft tissues are unremarkable. Impression: No acute findings.
--- NOTE | 2017-11-19 16:17 | Diagnostic Imaging Report ---
Indication: left shoulder pain Findings: 3 views of the left shoulder were obtained. Alignment of the left shoulder is normal. No acute fracture is identified. Soft tissues are unremarkable. Impression: No acute injury
--- NOTE | 2017-11-19 16:27 | Diagnostic Imaging Report ---
Indication: Pain Comparison: None Findings: Two-view clavicle obtained bilaterally. No acute fracture or malalignment identified. IMPRESSION: Negative exam
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
[2017-11-19 16:51] VITALS: BP 96/57
[2017-11-19] MEDS ORDERED: IBUPROFEN600 MG ORAL (16:57)
[2017-11-19] MEDS ORDERED: ROBAXIN500 MG PO (16:57)
[2017-11-19] MEDS ORDERED: LIDODERM700 M1 TOPIC (16:57)
[2017-11-19 17:05] VITALS: BP 96/57
== END 2017-11-19 17:06 | disposition home or self-care (01) ==
LOC: EMR 14:45
DX: S40.012A Contusion of left shoulder, initial encounter (principal); S60.212A Contusion of left wrist, initial encounter; S20.212A Contusion of left front wall of thorax, initial encounter; S63.502A Unspecified sprain of left wrist, initial encounter; V43.52XA Car driver injured in collision with other type car in traffic accident, initial encounter; Y92.410 Unspecified street and highway as the place of occurrence of the external cause
CPT/HCPCS: 99284

== ENCOUNTER 2017-12-04 17:23 | Emergency (ER) | payer OTHER ==
[~2017-12-04] VITALS: Ht 162.6 cm; Wt 59.0 kg
[~2017-12-04 17:23] MED LIST changes: +LIDODERM700 M1 TOPIC; +ROBAXIN500 MG PO
--- NOTE | 2017-12-04 18:50 | Emergency Room Report ---
History of Present Illness General Chief Complaint: Vaginal Source: Patient Present Illness HPI 22 yo female patient presents to ER complaining of vaginal discharge 2 days ago. Patient reports discharge was white/clear. Patient reports no symptoms since that time. Patient denies dysuria, hematuria, bloody discharge. Denies itching, burning symptoms. Denies foul smell. Denies itching, burning. Denies genital rash. Patient states she was recently seen in ER and treated with antibiotics and metronidazole gel. Reports LMP a few days ago, normal for her; states she was told at that time to discontinue metronidazole gel by primary care physician. States she did not complete full course of metronidazole gel. Reports hx of sex with partner, mutually monogamous relationship; states uses condoms with intercourse; reports partner does not have symptoms. Denies fever, chest pain, SOB, abdominal pain, rash, joint pain. Allergies: Coded Allergies: No Known Allergies (Unverified , 09/18/12) Patient History Past Medical History: see triage record Last Menstrual Period: 11/2017 Reviewed Nursing Documentation: PMH: Agreed, PSxH: Agreed Nursing Documentation-PMH Past Medical History: No Stated History Review of Systems All Other Systems: negative except mentioned in HPI Physical Exam Vital Signs Date Time Temp Pulse Resp B/P (MAP) Pulse Ox O2 Delivery O2 Flow Rate FiO2 12/04/17 17:53 98.8 82 16 92/57 99 Room Air 98.8 Sp02 EP Interpretation: reviewed, normal General Appearance: well appearing, no apparent distress, alert, GCS 15 Head: normocephalic, atraumatic Eyes: bilateral eye normal inspection, bilateral eye PERRL Respiratory: lungs clear, normal breath sounds, no rhonchi, no respiratory distress, no accessory muscle use, no wheezing, speaking full sentences Cardiovascular #1: regular rate, rhythm Gastrointestinal: non tender, soft, no mass, non-distended, no guarding, no rebound Genitourinary: no CVA tenderness, deferred Musculoskeletal: back normal, digits/nails normal, gait/station normal, normal range of motion, non-tender Neurologic: alert, oriented x3, responsive, motor strength/tone normal, sensory intact Psychiatric: mood/affect normal Skin: no rash Lymphatic: no adenopathy Medical Decision Making PA Attestation Dr. Aldridge is my supervising Physician whom patient management has been discussed with. Diagnostic Impression: Primary Impression: Bacterial vaginosis ER Course Pt. presents to the ED c/o vaginal discharge 2 days ago. Ddx considered but are not limited to gonorrhea, chlamydia, cystitis, pylonephritis, bacterial vaginosis. Vital signs: are WNL, pt. is afebrile Patient declined pelvic examination. Ordered UA and urine . ER COURSE: UA unremarkable, negative for nitrites. Urine negative. Discussed results with patient. Will treat for bacterial vaginosis. Patient instructed to complete entire course of medication. DISCHARGE: Advised to use safe sex practices including but not limited to use of condoms. Instructed patient to follow up with STI clinic and/or PCP for future STI treatment and prevention. Instructed patient to inform partner of need for treatment to prevent future infection. At this time pt. is stable for d/c to home. Will provide printed patient care instructions, and any necessary prescriptions. Care plan and follow up instructions have been discussed with the patient prior to discharge Rx provided for Metronidazole gel. At this time pt is stable for d/c to home. Patient is resting comfortably, in no acute distress, nontoxic appearing, talking without difficulty. Patient to take medications as instructed Will provide with patient care instructions and any necessary prescriptions. Care plan and follow-up instructions provided. Patient instructed to follow-up with primary care provider in 3 - 5 days. Patient questions asked and answered. Patient reports understanding and agreement to treatment plan. ER precautions given. Patient instructed to return to ER immediately for any new or worsening of symptoms including but not limited to increasing SOB, persistent fever. Labs Test 12/04/17 18:22 Urine Color Yellow Urine Appearance Clear Urine pH 6 (4.5-8.0) Urine Specific [place] 1.020 (1.005-1.035) Urine Protein Negative (NEGATIVE) Urine Glucose (UA) Negative (NEGATIVE) Urine Ketones 1+ (NEGATIVE) Urine Occult Blood 1+ (NEGATIVE) Urine Nitrite Negative (NEGATIVE) Urine Bilirubin Negative (NEGATIVE) Urine Urobilinogen 1 MG/DL (0.0-1.0) Urine Leukocyte Esterase 1+ (NEGATIVE) Urine RBC 2-4 /HPF (0 - 2) Urine WBC 2-4 /HPF (0 - 2) Urine Squamous Epithelial Cells Moderate /LPF (NONE/OCC) Urine Bacteria Few /HPF (NONE) Urine HCG, Qualitative Negative Last Vital Signs Date Time Temp Pulse Resp B/P (MAP) Pulse Ox O2 Delivery O2 Flow Rate FiO2 12/04/17 17:53 98.8 82 16 92/57 99 Room Air 98.8 Disposition: HOME, SELF-CARE Condition: Stable Scripts Metronidazole* (METROGEL-VAGINAL*) 70 Gm Gel.w.appl 1 APPL VAGIN EVERY 12 HOURS for 7 Days, #70 GM Prov: Carlos Melendez 12/04/17 Referrals: [facility],REFERRING (PCP) Additional Instructions: Followup with primary care provider in 3 -5 days for further treatment and referral. Request to have STI testing. Take medications as directed. Patient questions asked and answered. ER precautions given, patient instructed to return to ER immediately for any new or worsening of symptoms. Carlos Melendez Dec 04, 2017 18:50
[2017-12-04 18:58] LABS: APPEARANCE,URINE CLEAR; BILIRUBIN, URINE NEGATIVE (NEGATIVE); GLUCOSE, URINE (UA) NEGATIVE (NEGATIVE); KETONES,URINE 1+ (NEGATIVE); LEUKOCYTE ESTERASE ,URINE 1+ (NEGATIVE); NITRITE,URINE NEGATIVE (NEGATIVE); PH,URINE 6 (4.5-8.0); PROTEIN,URINE NEGATIVE (NEGATIVE); UROBILINOGEN,URINE 1 MG/DL (0.0-1.0)
[2017-12-04 19:02] LABS: COLOR,URINE YELLOW
[2017-12-04] MEDS ORDERED: METROGEL-VAGINA70 G1 VAGIN (19:13)
[2017-12-04 19:29] VITALS: BP 104/60
[2017-12-04 19:30] VITALS: BP 104/60
== END 2017-12-04 19:30 | disposition home or self-care (01) ==
LOC: EMR 18:16
DX: N76.0 Acute vaginitis (principal); B96.89 Other specified bacterial agents as the cause of diseases classified elsewhere
CPT/HCPCS: 81003; 81025; 99283

== ENCOUNTER 2018-04-02 13:30 | Emergency (ER) | payer OTHER ==
[~2018-04-02] VITALS: Ht 162.6 cm; Wt 61.2 kg
[~2018-04-02 13:30] MED LIST changes: +METROGEL-VAGINA70 G1 VAGIN
[2018-04-02 14:00] VITALS: BP 102/57
[2018-04-02] MEDS ORDERED: Azithromycin 250mg tab ORAL ONE (14:15)
[2018-04-02] MEDS ORDERED: Lidocaine 1% MPF 10mg/ml 5ml INJ ONE (14:15)
[2018-04-02 14:17] LABS: APPEARANCE,URINE CLEAR; BILIRUBIN, URINE NEGATIVE (NEGATIVE); GLUCOSE, URINE (UA) NEGATIVE (NEGATIVE); KETONES,URINE NEGATIVE (NEGATIVE); LEUKOCYTE ESTERASE ,URINE 1+ (NEGATIVE); NITRITE,URINE NEGATIVE (NEGATIVE); PH,URINE 6 (4.5-8.0); PROTEIN,URINE NEGATIVE (NEGATIVE); UROBILINOGEN,URINE 1 MG/DL (0.0-1.0)
--- NOTE | 2018-04-02 14:21 | Emergency Room Report ---
History of Present Illness General Chief Complaint: Vaginal Source: Patient Present Illness HPI 22-year-old female presents emergency department complaining of Thick greenish- white vaginal discharge 3-4 days. Patient reports that upon awakening today she noticed that the discharge had become more watery in since and had a malodor to it. Patient states that she's been having pelvic pain she denies this recent unprotected intercourse she states that she is attempting to become . Patient reports history of BV and yeast in the past. Patient reports intermittent 8/10 in severity dysuria. Patient denies hematuria, and frequency or urgency denies abdominal pain/tenderness. denies N/V/F/C. Allergies: Coded Allergies: No Known Allergies (Unverified , 09/18/12) Patient History Past Surgical History: unable to obtain Pertinent Family History: none Last Menstrual Period: 03/14/18 Now: No : 1 Para: 0 Reviewed Nursing Documentation: PMH: Agreed; PSxH: Agreed Review of Systems All Other Systems: negative except mentioned in HPI Physical Exam Vital Signs Date Time Temp Pulse Resp B/P (MAP) Pulse Ox O2 Delivery O2 Flow Rate FiO2 04/02/18 13:39 98.3 83 16 102/57 100 Room Air 98.2 Sp02 EP Interpretation: reviewed, normal General Appearance: no apparent distress, alert, GCS 15, non-toxic Head: normocephalic, atraumatic Eyes: bilateral eye normal inspection, bilateral eye PERRL ENT: hearing grossly normal, normal voice Neck: full range of motion Respiratory: lungs clear, normal breath sounds, speaking full sentences Cardiovascular #1: regular rate, rhythm Gastrointestinal: non tender, soft Rectal: deferred Genitourinary: normal inspection, no CVA tenderness, adnexa normal Musculoskeletal: back normal, gait/station normal, normal range of motion, non- tender Neurologic: alert, oriented x3, responsive, motor strength/tone normal, sensory intact, normal gait, speech normal, grossly normal Psychiatric: judgement/insight normal Skin: normal color, no rash, warm/dry, well hydrated Lymphatic: no adenopathy Medical Decision Making PA Attestation Dr. burroughs is my supervising Physician whom patient management has been discussed with. Diagnostic Impression: Primary Impression: Vaginitis Qualified Codes: N76.0 - Acute vaginitis ER Course 22-year-old female presents emergency department complaining of Thick greenish- white vaginal discharge 3-4 days. Patient reports that upon awakening today she noticed that the discharge had become more watery in since and had a malodor to it. Patient states that she's been having pelvic pain she denies this recent unprotected intercourse she states that she is attempting to become . Patient reports history of BV and yeast in the past. Patient reports intermittent 8/10 in severity dysuria. Patient denies hematuria, and frequency or urgency denies abdominal pain/tenderness. denies N/V/F/C. . Ddx considered but are not limited to UTi , STI, G & C, trichomonas, Vaginitis , cervicitis, bartholins gland cyst or cellulitis. Vital signs: are WNL, pt. is afebrile H&PE are most consistent with vaginitis ORDERS: - UA: elevated WBC's , few bacteria elevated leuks, will tx for UTI -Urine Hcg: Negative ED INTERVENTIONS: -250mg Rocephin IM - Azithromycin 1g PO DISCHARGE: At this time pt. is stable for d/c to home. Will provide printed patient care instructions, and any necessary prescriptions. Care plan and follow up instructions have been discussed with the patient prior to discharge. Labs Test 04/02/18 13:44 Urine Color Yellow Urine Appearance Clear Urine pH 6 (4.5-8.0) Urine Specific [place] 1.020 (1.005-1.035) Urine Protein Negative (NEGATIVE) Urine Glucose (UA) Negative (NEGATIVE) Urine Ketones Negative (NEGATIVE) Urine Occult Blood 2+ (NEGATIVE) Urine Nitrite Negative (NEGATIVE) Urine Bilirubin Negative (NEGATIVE) Urine Urobilinogen 1 MG/DL (0.0-1.0) Urine Leukocyte Esterase 1+ (NEGATIVE) Urine RBC 5-10 /HPF (0 - 2) Urine WBC 5-10 /HPF (0 - 2) Urine Squamous Epithelial Cells Many /LPF (NONE/OCC) Urine Bacteria Few /HPF (NONE) Last Vital Signs Date Time Temp Pulse Resp B/P (MAP) Pulse Ox O2 Delivery O2 Flow Rate FiO2 04/02/18 13:39 98.3 83 16 102/57 100 Room Air 98.2 Disposition: HOME, SELF-CARE Condition: Stable Scripts Metronidazole* (METROGEL-VAGINAL*) 70 Gm Gel.w.appl 1 APPL VAGIN BEDTIME for 7 Days, #70 GM 2 Refills Prov: Angela Hamilton 04/02/18 Fluconazole (FLUCONAZOLE) 100 Mg Tablet 100 MG ORAL DAILY, #4 TAB 0 Refills Prov: Angela Hamilton 04/02/18 Trimethoprim/Sulfamethoxazole 160/800* (BACTRIM DS TABLET*) 1 Each Tablet 1 TAB ORAL TWICE A DAY for 5 Days, #10 TAB Prov: Angela Hamilton 04/02/18 Patient Instructions: Bacterial Vaginosis, Mzok-id-Rcme Additional Instructions: Take medications as directed. Follow up with a PCP or POCKET MACHINE OPERATOR Specialist within 3-5 days, even if your symptoms have resolved. Return sooner to ED if new symptoms occur, or current symptoms become worse. - Please note that this Emergency Department Report was dictated using [employer] former machine technology software, occasionally this can lead to erroneous entry secondary to interpretation by the dictation equipment. Angela Hamilton Apr 02, 2018 14:21
[2018-04-02 14:22] LABS: COLOR,URINE YELLOW
[2018-04-02] MEDS ORDERED: METROGEL-VAGINA70 G1 VAGIN (14:37)
[2018-04-02] MEDS ORDERED: FLUCONAZOLE100 MG ORAL (14:37)
[2018-04-02] MEDS ORDERED: BACTRIM DS TAB1 EAC1 ORAL (14:37)
[2018-04-02 15:00] VITALS: BP 122/76
== END 2018-04-02 15:00 | disposition home or self-care (01) ==
LOC: EMR 14:12
DX: N76.0 Acute vaginitis (principal)
CPT/HCPCS: 81003; 96372; 99284; J0696; Q0144

== ENCOUNTER 2018-05-01 12:57 | Emergency (ER) | payer OTHER ==
[~2018-05-01] VITALS: Ht 162.6 cm; Wt 59.0 kg
[~2018-05-01 12:57] MED LIST changes: +BACTRIM DS TAB1 EAC1 ORAL
[2018-05-01 13:18] VITALS: BP 103/66
[2018-05-01] MEDS ORDERED: Norco 5mg/325mg tab ORAL ONE (13:30)
[2018-05-01] MEDS ORDERED: Lidocaine 1% MPF 10mg/ml 5ml INJ ONE (13:45)
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
[2018-05-01] MEDS ORDERED: NORCO 5-325 TA1 EACH ORAL (15:14)
[2018-05-01] MEDS ORDERED: BACITRACIN-P28.35 GM TP (15:14)
[2018-05-01 15:45] VITALS: BP 114/67
[2018-05-01 16:01] VITALS: BP 114/67
== END 2018-05-01 16:01 | disposition home or self-care (01) ==
LOC: EMR 13:35
DX: S61.300A Unspecified open wound of right index finger with damage to nail, initial encounter (principal); S61.304A Unspecified open wound of right ring finger with damage to nail, initial encounter; X50.9XXA Other and unspecified overexertion or strenuous movements or postures, initial encounter; Y92.9 Unspecified place or not applicable
CPT/HCPCS: 11730; 99283; Z7502

== ENCOUNTER 2018-05-28 14:37 | Emergency (ER) | payer OTHER ==
[~2018-05-28] VITALS: Ht 162.6 cm; Wt 61.2 kg
[~2018-05-28 14:37] MED LIST changes: +BACITRACIN-P28.35 GM TP; +NORCO 5-325 TA1 EACH ORAL
[2018-05-28 16:17] VITALS: BP 101/63
[2018-05-28 16:17] LABS: APPEARANCE,URINE TURBID; BILIRUBIN, URINE NEGATIVE (NEGATIVE); COLOR,URINE PALE YELLOW; GLUCOSE, URINE (UA) NEGATIVE (NEGATIVE); KETONES,URINE 1+ (NEGATIVE); LEUKOCYTE ESTERASE ,URINE 3+ (NEGATIVE); NITRITE,URINE NEGATIVE (NEGATIVE); PH,URINE 6 (4.5-8.0); PROTEIN,URINE 1+ (NEGATIVE); UROBILINOGEN,URINE NORMAL MG/DL (0.0-1.0)
[2018-05-28] MEDS ORDERED: Fluconazole 100mg tab ORAL ONE (16:45)
[2018-05-28] MEDS ORDERED: CEPHALEXIN500 MG ORAL (16:57)
[2018-05-28] MEDS ORDERED: METROGEL-VAGINA70 G1 VAGIN (16:57)
--- NOTE | 2018-05-28 16:58 | Emergency Room Report ---
History of Present Illness General Chief Complaint: General Complaint Source: Patient Present Illness HPI 23-year-old female patient presents ER complaining of discharge the past 2 days. reports "imafb-qdzzod-bhycx colored" discharge. Reports foul-smelling odor during this time. Reports history of Bacterial vaginosis, states it " feels similar to that". Denies fever, chest pain, shortness of breath, abdominal pain. Denies dysuria, hematuria. Denies abdominal pain, flank pain, vomiting. Denies concern for STI. Reports one sexual partner, partner not exhibiting symptoms. Allergies: Coded Allergies: No Known Allergies (Unverified , 09/18/12) Patient History Past Medical History: see triage record Last Menstrual Period: 04/21/2018 Reviewed Nursing Documentation: PMH: Agreed; PSxH: Agreed Nursing Documentation-PMH Past Medical History: No History, Except For Review of Systems All Other Systems: negative except mentioned in HPI Physical Exam Vital Signs Date Time Temp Pulse Resp B/P (MAP) Pulse Ox O2 Delivery O2 Flow Rate FiO2 05/28/18 14:50 98.8 91 14 101/63 97 Room Air 98.8 Sp02 EP Interpretation: reviewed, normal General Appearance: well appearing, no apparent distress, alert, GCS 15, non- toxic Head: normocephalic, atraumatic Eyes: bilateral eye normal inspection, bilateral eye PERRL ENT: hearing grossly normal, normal pharynx, no angioedema, normal voice, uvula midline, moist mucus membranes Neck: full range of motion Respiratory: lungs clear, normal breath sounds, no rhonchi, no respiratory distress, no accessory muscle use, no wheezing, speaking full sentences Cardiovascular #1: regular rate, rhythm, no edema Gastrointestinal: non tender, soft, no mass, non-distended, no guarding, no rebound Genitourinary: no CVA tenderness, ext genitalia/vag normal - no swelling, no erythema, no lesions, no vesicles Musculoskeletal: back normal, digits/nails normal, gait/station normal, normal range of motion, non-tender Neurologic: alert, oriented x3, responsive, motor strength/tone normal, sensory intact Psychiatric: mood/affect normal Skin: no rash Lymphatic: no adenopathy Medical Decision Making PA Attestation Dr. Zhong is my supervising Physician whom patient management has been discussed with. Diagnostic Impression: Primary Impression: UTI (urinary tract infection) Additional Impressions: Yeast vaginitis Bacterial vaginosis ER Course Pt presents to ED c/o urinary symptoms. DDX considered but are not limited to cystitis, pyelonephritis, STI, vaginitis, . VITAL SIGNS are WNL, patient is afebrile. Ordered UA. ER COURSE patient declined pelvic exam, symptoms consistent with bacterial vaginosis, will provide treatment with metronidazole, patient requesting vaginal metronidazole. With female incident analyst present, visualized external vagina, no signs of swelling, erythema, lesions or rashes. instructed patient to follow up with RECREATIONAL DIRECTOR to discuss further treatment due to recurrent symptoms. States she has appointment this week with her physician, states will discuss at that time. UA results show yeast, many WBCs, bacteria, indicate UTI, will treat with abx and provide fluconazole in the ER to treat for yeast infection. urine negative Discuss results with the patient If concern for STI, followup with STI or PCP clinic for testing and treatment. Denies STI concern. Patient is resting comfortably in chair, nontoxic appearing, in no acute distress. Patient states they feel better and is ready to go home. DISCHARGE -Rx provided for Keflex -Rx provided for that MetroGel. Do not drink while on medication. Patient is stable for discharge. Patient resting comfortably, in no acute distress, nontoxic appearing, talking without difficulty. Will provide with patient care instructions and any necessary prescriptions. Patient understands and agrees to treatment plan. Patient encouraged to drink plenty of fluids. Patient to take medication as instructed. Care plan and follow-up instructions provided. Patient questions asked and answered. Reports understanding and agreement to treatment plan. Patient instructed to follow-up with primary care provider in 3 - 5 days. ER precautions given. Patient instructed to return to ER immediately for any new or worsening of symptoms. Including but not limited to fever, abdominal pain , intractable vomiting. - Please note that this Emergency Department Report was dictated using [employer]ac[employer] reactor operator technology software, occasionally this can lead to erroneous entry secondary to interpretation by the dictation equipment. Labs Test 05/28/18 15:50 Urine Color Pale yellow Urine Appearance Turbid Urine pH 6 (4.5-8.0) Urine Specific [place] 1.015 (1.005-1.035) Urine Protein 1+ (NEGATIVE) Urine Glucose (UA) Negative (NEGATIVE) Urine Ketones 1+ (NEGATIVE) Urine Blood 2+ (NEGATIVE) Urine Nitrite Negative (NEGATIVE) Urine Bilirubin Negative (NEGATIVE) Urine Urobilinogen Normal MG/DL (0.0-1.0) Urine Leukocyte Esterase 3+ (NEGATIVE) Urine RBC 10-15 /HPF (0 - 2) Urine WBC 40-60 /HPF (0 - 2) Urine Squamous Epithelial Cells Many /LPF (NONE/OCC) Urine Bacteria Moderate /HPF (NONE) Urine Yeast Occasional /HPF (NONE) Urine HCG, Qualitative Negative (NEGATIVE) Last Vital Signs Date Time Temp Pulse Resp B/P (MAP) Pulse Ox O2 Delivery O2 Flow Rate FiO2 05/28/18 16:17 98.8 14 101/63 97 Room Air 98.8 05/28/18 14:50 91 Disposition: HOME, SELF-CARE Condition: Stable Scripts Metronidazole* (METROGEL-VAGINAL*) 70 Gm Gel.w.appl 1 APPL VAGIN EVERY 12 HOURS, #70 GM Prov: Carlos Melendez 05/28/18 Cephalexin* (KEFLEX*) 500 Mg Capsule 500 MG ORAL EVERY 12 HOURS, #14 CAP 0 Refills Prov: Carlos Melendez 05/28/18 Referrals: [facility] (PCP) Patient Instructions: Bacterial Vaginosis, [id number], Urinary Tract Infection, [id number], Vaginal Yeast Infection, Adult Additional Instructions: Followup with primary care provider and followup with STI clinic for further evaluation and treatment. Follow-up with RECREATIONAL DIRECTOR at scheduled appointment. Alert sexual partners for need for evaluation and treatment. Wear condoms during sex. Avoid sexual activity for 2 weeks. Drink plenty of fluids. Patient questions asked and answered. Do not drink alcohol taking medication. ER precautions given, patient instructed to return to ER immediately for any new or worsening of symptoms. Carlos Melendez May 28, 2018 16:58
[2018-05-28 17:01] VITALS: BP 101/63
== END 2018-05-28 17:01 | disposition home or self-care (01) ==
LOC: EMR 15:25
DX: B37.3 Candidiasis of vulva and vagina (principal); N39.0 Urinary tract infection, site not specified
CPT/HCPCS: 81003; 81025; 87086; 99283

== ENCOUNTER 2018-06-12 12:55 | Emergency (ER) | payer OTHER ==
[~2018-06-12] VITALS: Ht 162.6 cm; Wt 61.2 kg
[~2018-06-12 12:55] MED LIST changes: +CEPHALEXIN500 MG ORAL
[2018-06-12 13:08] VITALS: BP 99/63
[2018-06-12] MEDS ORDERED: Fluconazole 100mg tab ORAL ONE (13:15)
[2018-06-12 13:27] LABS: APPEARANCE,URINE CLEAR; BILIRUBIN, URINE NEGATIVE (NEGATIVE); COLOR,URINE PALE YELLOW; GLUCOSE, URINE (UA) NEGATIVE (NEGATIVE); KETONES,URINE NEGATIVE (NEGATIVE); LEUKOCYTE ESTERASE ,URINE 2+ (NEGATIVE); NITRITE,URINE NEGATIVE (NEGATIVE); PH,URINE 6 (4.5-8.0); PROTEIN,URINE NEGATIVE (NEGATIVE); UROBILINOGEN,URINE NORMAL MG/DL (0.0-1.0)
--- NOTE | 2018-06-12 13:35 | Emergency Room Report ---
History of Present Illness General Chief Complaint: Female Urogenital Problems Source: Patient Present Illness HPI 23-year-old female patient presents ER complaining of burning pain with urination for the past 2 days. Reports previously seen in ER at [facility] [place] for similar symptoms over 2 weeks ago, states that she completed her previous course of antibiotics, states that her symptoms were resolved for a few days and then returned recently. reports currently still taking metronidazole as previously instructed, reports vaginal discharge symptoms have improved since previous visit, denies itching. Reports no concern for STI.. Denies hematuria or foul smelling odor. Denies abdominal pain or flank pain. Denies fever, chest pain, shortness of breath, abdominal pain, vomiting. states has not followed up with her PCP since previous visit. Allergies: Coded Allergies: No Known Allergies (Unverified , 09/18/12) Patient History Past Medical History: see triage record Last Menstrual Period: 06/10/2018 Reviewed Nursing Documentation: PMH: Agreed; PSxH: Agreed Nursing Documentation-PMH Past Medical History: No History, Except For Review of Systems All Other Systems: negative except mentioned in HPI Physical Exam Vital Signs Date Time Temp Pulse Resp B/P (MAP) Pulse Ox O2 Delivery O2 Flow Rate FiO2 06/12/18 13:04 99.1 100 14 99/63 99 Room Air 99.1 Sp02 EP Interpretation: reviewed, normal General Appearance: well appearing, no apparent distress, alert, GCS 15, non- toxic Head: normocephalic, atraumatic Eyes: bilateral eye normal inspection, bilateral eye PERRL ENT: hearing grossly normal, normal pharynx, no angioedema, normal voice, uvula midline, moist mucus membranes Neck: full range of motion Respiratory: lungs clear, normal breath sounds, no rhonchi, no respiratory distress, no accessory muscle use, no wheezing, speaking full sentences Cardiovascular #1: regular rate, rhythm, no edema Gastrointestinal: non tender, soft, no mass, non-distended, no guarding, no rebound Genitourinary: no CVA tenderness Musculoskeletal: back normal, digits/nails normal, gait/station normal, normal range of motion, non-tender Neurologic: alert, oriented x3, responsive, motor strength/tone normal, sensory intact Psychiatric: mood/affect normal Skin: no rash Medical Decision Making PA Attestation Dr. Aldridge is my supervising Physician whom patient management has been discussed with. Diagnostic Impression: Primary Impression: Burning with urination ER Course Pt presents to ED c/o urinary symptoms. DDX considered but are not limited to cystitis, pyelonephritis, STI, vaginitis, . No abdominal tenderness to palpation, negative flocculator operator, negative Root, negative Rovsing, low suspicion for cholecystitis or appendicitis, does not require imaging or labs at this time. VITAL SIGNS are WNL, patient is afebrile. Ordered UA. ER COURSE UA results negative nitrites, occasional epithelial cells, infection unlikely, do not indicate UTI, does not need abx. urine negative. Discuss results with patient. If concern for STI, followup with STI clinic for testing and treatment. Denies STI concern. informed patient to follow-up with PCP to discuss further treatment referral due to repeated UTI symptoms. Patient states that her doctor is "up the street " and she will follow-up with him after leaving the ER. Instructed patient to discuss STI testing and treatment at that time, states she was tested last month, not require STI treatment or testing at this time. Will provide patient with Pyridium for painful urination symptoms, advised patient on possible side effect of orange discoloration of urine. Continue taking metronidazole previously instructed. do not drink alcohol taking medication. Patient is resting comfortably in chair, nontoxic appearing, in no acute distress. Patient states they feel better and is ready to go home. DISCHARGE -Rx provided for Phenazopyridine for pain. SE may turn urine orange. Patient is stable for discharge. Patient resting comfortably, in no acute distress, nontoxic appearing, talking without difficulty, playing on phone. Will provide with patient care instructions and any necessary prescriptions. Patient understands and agrees to treatment plan. Patient encouraged to drink plenty of fluids. Patient to take medication as instructed. Care plan and follow-up instructions provided. Patient questions asked and answered. Reports understanding and agreement to treatment plan. Patient instructed to follow-up with primary care provider in 3 - 5 days. ER precautions given. Patient instructed to return to ER immediately for any new or worsening of symptoms. Including but not limited to fever, abdominal pain , intractable vomiting. - Please note that this Emergency Department Report was dictated using Fablisticaccounting administrator technology software, occasionally this can lead to erroneous entry secondary to interpretation by the dictation equipment. Labs Test 06/12/18 13:12 Urine Color Pale yellow Urine Appearance Clear Urine pH 6 (4.5-8.0) Urine Specific [place] 1.010 (1.005-1.035) Urine Protein Negative (NEGATIVE) Urine Glucose (UA) Negative (NEGATIVE) Urine Ketones Negative (NEGATIVE) Urine Blood 1+ (NEGATIVE) Urine Nitrite Negative (NEGATIVE) Urine Bilirubin Negative (NEGATIVE) Urine Urobilinogen Normal MG/DL (0.0-1.0) Urine Leukocyte Esterase 2+ (NEGATIVE) Urine RBC 2-4 /HPF (0 - 2) Urine WBC 2-4 /HPF (0 - 2) Urine Squamous Epithelial Cells Occasional /LPF Urine Bacteria Occasional /HPF (NONE) Urine Mucus Few /LPF (NONE/OCC) Urine HCG, Qualitative Negative (NEGATIVE) Last Vital Signs Date Time Temp Pulse Resp B/P (MAP) Pulse Ox O2 Delivery O2 Flow Rate FiO2 06/12/18 13:08 99.1 69 14 99/63 99 Room Air 99.1 Disposition: HOME, SELF-CARE Condition: Stable Scripts Phenazopyridine Hcl* (PYRIDIUM*) 100 Mg Tablet 100 MG ORAL THREE TIMES A DAY, #12 TAB Prov: Carlos Melendez 06/12/18 Referrals: [facility] (PCP) Patient Instructions: Dysuria Additional Instructions: Followup with primary care provider and followup with and./or OBGYN due to recurrent UTI symptoms. Drink plenty of fluids. Take medications as directed. Pyridium has SE of turning urine orange. Patient questions asked and answered. ER precautions given, patient instructed to return to ER immediately for any new or worsening of symptoms. Carlos Melendez Jun 12, 2018 13:35
[2018-06-12] MEDS ORDERED: PHENAZOPYRIDIN100 MG ORAL (13:41)
[2018-06-12 13:45] VITALS: BP 99/63
== END 2018-06-12 13:46 | disposition home or self-care (01) ==
LOC: EMR 13:15
DX: R30.9 Painful micturition, unspecified (principal); R30.0 Dysuria
CPT/HCPCS: 81003; 81025; 99283

== ENCOUNTER 2018-08-03 15:59 | Emergency (ER) | payer OTHER ==
[~2018-08-03] VITALS: Ht 162.6 cm; Wt 61.2 kg
[~2018-08-03 15:59] MED LIST changes: +PHENAZOPYRIDIN100 MG ORAL
[2018-08-03 16:14] VITALS: BP 102/65
[2018-08-03] MEDS ORDERED: Bacitracin Oint UD TOPIC ONE (16:15)
[2018-08-03] MEDS ORDERED: Lidocaine 1% Plain 30 ml INJ ONE (16:15)
[2018-08-03] MEDS ORDERED: TYLENOL EXTRA500 MG ORAL (16:25)
[2018-08-03] MEDS ORDERED: BACTRIM DS TAB1 EAC1 ORAL (16:25)
[2018-08-03] MEDS ORDERED: BACITRACIN-P28.35 GM TP (16:25)
--- NOTE | 2018-08-03 16:28 | Emergency Room Report ---
History of Present Illness General Chief Complaint: General Complaint Source: Patient Present Illness HPI 23-year-old female patient presents ER complaining of "infection" of her right hand ring finger and index finger. Reports several months ago she was seen here after a traumatic avulsion of her nails and had her nails removed. Reports since that time her nails have gone to grow back however she continues to remove the nails herself. Requesting that her fingernail on her right hand index finger be removed currently today. Reports has not seen hand specialist. Reports saw her primary care provider but did not agree with his treatment plan. Denies recent injury or trauma. Denies loss of range of motion. Reports she is left-hand dominant. Allergies: Coded Allergies: No Known Allergies (Unverified , 09/18/12) Patient History Past Medical History: see triage record Last Menstrual Period: 07/17/18 Now: No Reviewed Nursing Documentation: PMH: Agreed; PSxH: Agreed Nursing Documentation-PMH Past Medical History: No History, Except For Review of Systems All Other Systems: negative except mentioned in HPI Physical Exam Vital Signs Date Time Temp Pulse Resp B/P (MAP) Pulse Ox O2 Delivery O2 Flow Rate FiO2 08/03/18 16:03 98.2 84 20 102/65 96 Room Air Sp02 EP Interpretation: reviewed, normal General Appearance: well appearing, no apparent distress, alert, GCS 15, non- toxic Head: normocephalic, atraumatic Eyes: bilateral eye normal inspection, bilateral eye PERRL ENT: hearing grossly normal, normal pharynx, no angioedema, normal voice, uvula midline, moist mucus membranes Neck: full range of motion Respiratory: lungs clear, normal breath sounds, no rhonchi, no respiratory distress, no accessory muscle use, no wheezing, speaking full sentences Cardiovascular #1: regular rate, rhythm, no edema Cardiovascular #2: 2+ radial (R), 2+ radial (L) Musculoskeletal: back normal, gait/station normal, normal range of motion, non- tender, other - right hand ring finger nail: Ingrown nail, apperance of second ingrown nail superimposed on second perviously removed nail matrix, no erythema or edema, no TTP; right hand index finger: nail absent, no erythema or edema, no signs of infection, sensation to light touch Neurologic: alert, oriented x3, responsive, motor strength/tone normal, sensory intact Psychiatric: mood/affect normal Skin: no rash Medical Decision Making PA Attestation Dr. Charles is my supervising Physician whom patient management has been discussed with. Diagnostic Impression: Primary Impression: Ingrown nail ER Course Pt. presents to the ED c/o finger pain. Ddx considered but are not limited to ingrown toenail, nail avulsion, paronychia , felon, cellulitis, tinea unguinum. Vital signs: are WNL, pt. is afebrile ER COURSE: Physical exam shows: ingrown fingernail noted, no signs of infection noted however will provide patient with antibiotics to prevent possible infection. Do not believe the patient requires I and D at this time. Advise patient follow up with hand specialist. Instructed patient to apply topical abx, nails covered with bandages in the ER. No emergent indication for nail removal. Patient states "what if I rebuff the nail then continue treated". Informed patient not to remove nail herself. Follow-up with specialist and or PCP. Followup with PCP and hand specialist. discussed patient care with Dr. Charles, seen and evaluated by him, agrees with assessment and treatment plan. ER precautions given. DISCHARGE: Rx provided for Bactrim Rx provided for Bacitracin Rx provided for Tylenol At this time pt is stable for d/c to home. Patient is resting comfortably, in no acute distress, nontoxic appearing, talking without difficulty. Patient to take medications as instructed Will provide with patient care instructions and any necessary prescriptions. Care plan and follow-up instructions provided. Patient instructed to follow-up with primary care provider in 3 - 5 days. Patient questions asked and answered. Patient reports understanding and agreement to treatment plan. ER precautions given. Patient instructed to return to ER immediately for any new or worsening of symptoms including but not limited to increasing SOB, persistent fever, chest pain, intractable vomiting. - Please note that this Emergency Department Report was dictated using [employer] technology software, occasionally this can lead to erroneous entry secondary to interpretation by the dictation equipment. Last Vital Signs Date Time Temp Pulse Resp B/P (MAP) Pulse Ox O2 Delivery O2 Flow Rate FiO2 08/03/18 16:14 98.2 84 20 102/65 96 Room Air Disposition: HOME, SELF-CARE Condition: Stable Scripts Bacitracin/Polymyxin B Sulfate (BACITRACIN-POLYMYXIN OINTMENT) 28.35 Gm Oint...g. 1 APPLIC TP BID, #28 GM Prov: Carlos Melendez 08/03/18 Trimethoprim/Sulfamethoxazole 160/800* (BACTRIM DS TABLET*) 1 Each Tablet 1 TAB ORAL TWICE A DAY for 7 Days, #14 TAB Prov: Carlos Melendez 08/03/18 Acetaminophen* (TYLENOL EXTRA STRENGTH*) 500 Mg Tablet 500 MG ORAL Q8H PRN for Prn Headache/Temp > 101, #30 TAB 0 Refills Prov: Carlos Melendez 08/03/18 Referrals: [facility],REFERRING (PCP) Patient Instructions: Nail Bed Injury Additional Instructions: Followup with primary care provider in 3 -5 days. Discuss refferral to hand specialists for further evaluation and treatment. Provided with contact info for hand specialist, call to schedule appointment. Take medications as directed. Patient questions asked and answered. ER precautions given, patient instructed to return to ER immediately for any new or worsening of symptoms. Carlos Melendez Aug 03, 2018 16:28
[2018-08-03 16:39] VITALS: BP 102/65
== END 2018-08-03 16:39 | disposition home or self-care (01) ==
LOC: EMR 16:11
DX: L60.0 Ingrowing nail (principal)
CPT/HCPCS: 99283; J2001

== ENCOUNTER 2018-10-08 02:25 | Emergency (ER) | payer OTHER ==
[~2018-10-08] VITALS: Ht 162.6 cm; Wt 56.7 kg
[2018-10-08 02:45] VITALS: BP 105/65
--- NOTE | 2018-10-08 02:45 | NUR ---
ED Nurse Note: patient walked into ED c/o of painful urination along with discharge for 1 day, patient rates her pain as a 5/10 non radiating anyhwere else. patient states that she does have a history of UTIs, patient is alert and oriented x4, ambulatory with a steady gait, VSS
--- NOTE | 2018-10-08 02:56 | Emergency Room Report ---
History of Present Illness General Chief Complaint: Female Urogenital Problems Source: Patient Present Illness HPI Patient is a 23-year-old female presented for increased dysuria and increased urinary frequency. She reports of increased vaginal discharge. Patient reports having some increased white discharge. She states she has been late on her menses. She denies any vomiting. She reports having a generalized discomfort to lower abdomen. Allergies: Coded Allergies: No Known Allergies (Unverified , 10/08/18) Patient History Past Medical History: see triage record Last Menstrual Period: Now: No - possible Reviewed Nursing Documentation: PMH: Agreed; PSxH: Agreed Nursing Documentation-PMH Hx Cardiac Problems: No Hx Hypertension: No Hx Pacemaker: No Hx Asthma: No Hx COPD: No Hx Diabetes: No Hx Cancer: No Hx Gastrointestinal Problems: No Hx Dialysis: No History Of Psychiatric Problem: No Hx Neurological Problems: No Hx Cerebrovascular Accident: No Hx Seizures: No Review of Systems All Other Systems: negative except mentioned in HPI Physical Exam Vital Signs Date Time Temp Pulse Resp B/P (MAP) Pulse Ox O2 Delivery O2 Flow Rate FiO2 10/08/18 02:39 86 16 103/62 97 Room Air General Appearance: well appearing, no apparent distress, alert, GCS 15 Head: normocephalic, atraumatic ENT: hearing grossly normal, normal voice Neck: full range of motion, supple Respiratory: no respiratory distress, speaking full sentences Gastrointestinal: normal inspection, non tender Musculoskeletal: no calf tenderness Neurologic: normal gait Psychiatric: mood/affect normal Skin: no rash Medical Decision Making Diagnostic Impression: Primary Impression: UTI (urinary tract infection) ER Course Patient presented for dysuria. Differential diagnosis included was not limited to appendicitis, urinary tract infection, pelvic inflammatory disease, urethritis, herpes among others. Patient has a benign exam and does not appear to require any further imaging or laboratory testing at this time. Patient appears to have some evidence of urinary infection. She is given prescription for Keflex. test was noted to be negative. She is advised to follow- up with her primary care physician for outpatient sexually transmitted disease testing. Patient was advised to return if she had any fever persistent vomiting or other concerns Labs Test 10/08/18 02:55 Urine Color Yellow Urine Appearance Cloudy Urine pH 5 (4.5-8.0) Urine Specific [place] 1.030 (1.005-1.035) Urine Protein 2+ (NEGATIVE) Urine Glucose (UA) Negative (NEGATIVE) Urine Ketones Negative (NEGATIVE) Urine Blood 1+ (NEGATIVE) Urine Nitrite Negative (NEGATIVE) Urine Bilirubin 1+ (NEGATIVE) Urine Ictotest Negative (NEGATIVE) Urine Urobilinogen 1 MG/DL (0.0-1.0) Urine Leukocyte Esterase 1+ (NEGATIVE) Urine RBC 2-4 /HPF (0 - 2) Urine WBC 2-4 /HPF (0 - 2) Urine Squamous Epithelial Cells Many /LPF (NONE/OCC) Urine Bacteria Moderate /HPF (NONE) Urine HCG, Qualitative Negative (NEGATIVE) Last Vital Signs Date Time Temp Pulse Resp B/P (MAP) Pulse Ox O2 Delivery O2 Flow Rate FiO2 10/08/18 02:39 86 16 103/62 97 Room Air Status: improved Disposition: HOME, SELF-CARE Condition: Stable Scripts Cephalexin* (KEFLEX*) 500 Mg Capsule 500 MG ORAL EVERY 6 HOURS, #20 CAP Prov: Marcos Redding MD 10/08/18 Marcos Redding MD Oct 08, 2018 02:56
[2018-10-08 03:00] VITALS: BP 110/67
--- NOTE | 2018-10-08 03:00 | NUR ---
ED Nurse Note: patient is being discharged from ED alert and oriented x4, ambulatory with a steady gait, VSS. patient acknowledged the need to follow up with PMD within a week if symptoms dont improve. patients prescription in hand, ID band removed
[2018-10-08 03:03] LABS: APPEARANCE,URINE CLOUDY; BILIRUBIN, URINE 1+ (NEGATIVE); GLUCOSE, URINE (UA) NEGATIVE (NEGATIVE); KETONES,URINE NEGATIVE (NEGATIVE); LEUKOCYTE ESTERASE ,URINE 1+ (NEGATIVE); NITRITE,URINE NEGATIVE (NEGATIVE); PH,URINE 5 (4.5-8.0); PROTEIN,URINE 2+ (NEGATIVE); UROBILINOGEN,URINE 1 MG/DL (0.0-1.0)
[2018-10-08 03:14] LABS: COLOR,URINE YELLOW
[2018-10-08] MEDS ORDERED: CEPHALEXIN500 MG ORAL (03:17)
== END 2018-10-08 03:15 | disposition home or self-care (01) ==
LOC: EMR 03:03
DX: N39.0 Urinary tract infection, site not specified (principal)
CPT/HCPCS: 81003; 81025; 87086; 99283

== ENCOUNTER 2018-11-12 20:29 | Emergency (ER) | payer SELFPAY ==
[~2018-11-12] VITALS: Ht 162.6 cm; Wt 54.4 kg
--- NOTE | 2018-11-12 20:40 | NUR ---
ED Nurse Note: Patient walk in c/o she placed Jd Pearls in vagina 1x week ago for detox purposes. Patient states she took them out and she is still having discharge. Patient reports pain and vaginal swelling. AO4. NAD. VSS
--- NOTE | 2018-11-12 20:51 | NUR ---
ED Nurse Note: Urine collected; sent down to lab.
--- NOTE | 2018-11-12 21:06 | Emergency Room Report ---
History of Present Illness General Chief Complaint: Vaginal Source: Patient Present Illness HPI 23-year-old female presenting with vaginal discharge. Says that she put "francy pearles" into her vagina few days ago. Now presenting with a few days of white vaginal discharge. Slight itchiness. Says that she has ovarian cysts and she was told that the pearls can get rid of the sister that she took them. She got the pills on the Internet. No fever no chills no pain when she urinates Allergies: Coded Allergies: No Known Allergies (Unverified , 10/08/18) Patient History Past Medical History: see triage record Past Surgical History: none Pertinent Family History: none Last Menstrual Period: 10/26/2018 Now: No Reviewed Nursing Documentation: PMH: Agreed; PSxH: Agreed Nursing Documentation-PMH Past Medical History: No History, Except For Hx Cardiac Problems: No Hx Hypertension: No Hx Pacemaker: No Hx Asthma: No Hx COPD: No Hx Diabetes: No Hx Cancer: No Hx Gastrointestinal Problems: No Hx Dialysis: No Hx Neurological Problems: No Hx Cerebrovascular Accident: No Hx Seizures: No Review of Systems All Other Systems: negative except mentioned in HPI Physical Exam Vital Signs Date Time Temp Pulse Resp B/P (MAP) Pulse Ox O2 Delivery O2 Flow Rate FiO2 11/12/18 20:36 98.2 92 16 102/46 99 Room Air Sp02 EP Interpretation: reviewed, normal General Appearance: normal inspection, well appearing, no apparent distress, alert, GCS 15, non-toxic Head: normocephalic, atraumatic Eyes: bilateral eye normal inspection, bilateral eye PERRL, bilateral eye EOMI ENT: normal ENT inspection, normal pharynx, normal voice, moist mucus membranes Neck: normal inspection, full range of motion, supple Respiratory: normal inspection, lungs clear, normal breath sounds, no respiratory distress, speaking full sentences, chest symmetrical Cardiovascular #1: normal inspection, normal capillary refill Cardiovascular #2: 2+ radial (R), 2+ radial (L) Gastrointestinal: normal inspection, non tender, soft, non-distended, no guarding Genitourinary: other - Slight thick vaginal discharge that is white, no CMT nor adnexal tenderness Musculoskeletal: normal inspection, back normal, normal range of motion, non- tender Neurologic: normal inspection, alert, oriented x3, responsive, motor strength/ tone normal, sensory intact, normal gait, speech normal Psychiatric: normal inspection, judgement/insight normal, memory normal Skin: normal inspection, normal color, no rash, warm/dry, well hydrated, normal turgor Medical Decision Making Diagnostic Impression: Primary Impression: Vaginitis ER Course 23-year-old female with vaginal discharge DDX: Likely candidal infection versus irritation from the pills that she purchased on the Internet Plan: Will give fluconazole ER course: Patient has remained stable during ED stay. Pelvic exam with speculum reveals no foreign body in vagina Disposition: Patient is to be discharged to home. Patient is instructed to follow up with their primary care doctor within 5 days. Please note that this Emergency Department Report was dictated using Far[employer] person technology software, occasionally this can lead to erroneous entry secondary to interpretation by the dictation equipment Last Vital Signs Date Time Temp Pulse Resp B/P (MAP) Pulse Ox O2 Delivery O2 Flow Rate FiO2 11/12/18 20:36 98.2 92 16 102/46 99 Room Air Disposition: HOME, SELF-CARE Condition: Stable Candelaria Solis M.D. Nov 12, 2018 21:06
[2018-11-12] MEDS ORDERED: Fluconazole 100mg tab ORAL ONE (21:15)
[2018-11-12 21:24] VITALS: BP 102/46
[2018-11-12 21:45] VITALS: BP 102/46
--- NOTE | 2018-11-12 21:45 | NUR ---
ED Nurse Note: Patient cleared for discharge per ERMD. AO4 NAD. VSS. Patient given prescriptions and discharge instructions; verbalized understanding. ID band removed. Patient ambulated steady with all personal belongings.
== END 2018-11-12 21:45 | disposition home or self-care (01) ==
LOC: EMR 21:33
DX: N76.0 Acute vaginitis (principal)
CPT/HCPCS: 99283

== ENCOUNTER 2019-02-05 05:22 | Emergency (ER) | payer SELFPAY ==
[~2019-02-05] VITALS: Ht 162.6 cm; Wt 53.5 kg
--- NOTE | 2019-02-05 05:40 | Emergency Room Report ---
History of Present Illness General Chief Complaint: Abdominal Pain Source: Patient (Artis Melgar MD) Present Illness HPI Is a 23-year-old female with no past medical history. She presents with chief complaint of abdominal pain with fever and chills. Onset yesterday. Multiple episodes of vomiting. Unable to keep anything down. Vomiting was nonbloody. Now with bowel. Also with sore throat and body pain. No diarrhea. Unable to keep anything down. Denies any other complaint. (Artis Melgar MD) Allergies: Coded Allergies: No Known Allergies (Unverified , 10/08/18) Patient History Past Medical History: see triage record, old chart reviewed Past Surgical History: none Pertinent Family History: none Social History: Denies: smoking Last Menstrual Period: Current Now: No Immunizations: other Reviewed Nursing Documentation: PMH: Agreed; PSxH: Agreed (Artis Melgar MD) Nursing Documentation-PMH Past Medical History: No Stated History Hx Cardiac Problems: No Hx Hypertension: No Hx Pacemaker: No Hx Asthma: No Hx COPD: No Hx Diabetes: No Hx Cancer: No Hx Gastrointestinal Problems: No Hx Dialysis: No Hx Neurological Problems: No Hx Cerebrovascular Accident: No Hx Seizures: No (Artis Melgar MD) Review of Systems Constitutional: Reports: chills, fever Eye: Denies: eye pain, blurred vision ENT: Denies: ear pain, nose congestion, throat swelling Respiratory: Denies: cough, shortness of breath Cardiovascular: Denies: chest pain, palpitations Gastrointestinal: Reports: abdominal pain, nausea, vomiting; Denies: diarrhea Musculoskeletal: Denies: back pain, joint pain Skin: Denies: rash Neurological: Denies: headache, numbness Endocrine: Denies: increased thirst, increased urine Hematologic/Lymphatic: Denies: easy bruising All Other Systems: negative except mentioned in HPI (Artis Melgar MD) Physical Exam Vital Signs Date Time Temp Pulse Resp B/P (MAP) Pulse Ox O2 Delivery O2 Flow Rate FiO2 02/05/19 05:25 98.4 89 16 98 Room Air vitals normal Sp02 EP Interpretation: reviewed, normal General Appearance: well appearing, no apparent distress, alert Head: normocephalic, atraumatic Eyes: bilateral eye PERRL, bilateral eye EOMI ENT: hearing grossly normal, normal pharynx Neck: full range of motion, supple, no meningismus Respiratory: chest non-tender, lungs clear, normal breath sounds Cardiovascular #1: regular rate, rhythm, no murmur Gastrointestinal: normal bowel sounds, no mass, no organomegaly, no bruit, non- distended, tenderness, decreased bowel sounds Musculoskeletal: back normal, gait/station normal, normal range of motion Neurologic: alert, oriented x3 Psychiatric: mood/affect normal Skin: warm/dry (Artis Melgar MD) Medical Decision Making Diagnostic Impression: Primary Impression: Abdominal pain Qualified Codes: R10.84 - Generalized abdominal pain Additional Impressions: Dehydration UTI (urinary tract infection) Qualified Codes: N30.00 - Acute cystitis without hematuria Hypokalemia ER Course Recent presents with abdominal pain with nausea vomiting. Face and a urine, she is very dehydrated. Labs and CT scan pending. I will sign this patient out to Dr. Sylvester for final disposition. (Artis Melgar MD) ER Course Please see above note. Patient is back from CT. She complains of 8/10 pain at this time. Her abdominal exam is soft and she declines more pain medication. Rocephin has been started for a UTI. Potassium is low. Potassium is given orally. CT as below. Pain gone. Patient stable for outpatient observation and treatment. Laboratory Tests Test 02/05/19 05:35 02/05/19 05:54 Urine Color Brown Urine Appearance Slightly cloudy Urine pH 5 (4.5-8.0) Urine Specific [place] 1.025 (1.005-1.035) Urine Protein 2+ (NEGATIVE) H Urine Glucose (UA) Negative (NEGATIVE) Urine Ketones 4+ (NEGATIVE) H Urine Blood 5+ (NEGATIVE) H Urine Nitrite Negative (NEGATIVE) Urine Bilirubin Negative (NEGATIVE) Urine Urobilinogen 1 MG/DL (0.0-1.0) H Urine Leukocyte Esterase 2+ (NEGATIVE) H Urine RBC 40-60 /HPF (0 - 2) H Urine WBC 5-10 /HPF (0 - 2) H Urine Squamous Epithelial Cells Many /LPF (NONE/OCC) H Urine Bacteria Moderate /HPF (NONE) H Urine Mucus Occasional /LPF Urine HCG, Qualitative Negative (NEGATIVE) White Blood Count 9.1 K/UL (4.8-10.8) Red Blood Count 4.87 M/UL (4.20-5.40) Hemoglobin 14.0 G/DL (12.0-16.0) Hematocrit 41.4 % (37.0-47.0) Mean Corpuscular Volume 85 FL (80-99) Mean Corpuscular Hemoglobin 28.7 PG (27.0-31.0) Mean Corpuscular Hemoglobin Concent 33.7 G/DL (32.0-36.0) Red Cell Distribution Width 11.1 % (11.6-14.8) L Platelet Count 298 K/UL (150-450) Mean Platelet Volume 6.8 FL (6.5-10.1) Neutrophils (%) (Auto) 64.3 % (45.0-75.0) Lymphocytes (%) (Auto) 29.1 % (20.0-45.0) Monocytes (%) (Auto) 4.4 % (1.0-10.0) Eosinophils (%) (Auto) 1.1 % (0.0-3.0) Basophils (%) (Auto) 1.1 % (0.0-2.0) Sodium Level 138 MMOL/L (136-145) Potassium Level 2.8 MMOL/L (3.5-5.1) L Chloride Level 100 MMOL/L (98-107) Carbon Dioxide Level 28 MMOL/L (21-32) Anion Gap 10 mmol/L (5-15) Blood Urea Nitrogen 8 mg/dL (7-18) Creatinine 1.0 MG/DL (0.55-1.30) Estimate Glomerular Filtration Rate > 60 mL/min (>60) Glucose Level 99 MG/DL (74-106) Calcium Level 9.4 MG/DL (8.5-10.1) Total Bilirubin 0.5 MG/DL (0.2-1.0) Aspartate Amino Transferase (AST) 28 U/L (15-37) Alanine Aminotransferase (ALT) 30 U/L (12-78) Alkaline Phosphatase 49 U/L (46-116) Total Protein 8.8 G/DL (6.4-8.2) H Albumin 4.5 G/DL (3.4-5.0) Globulin 4.3 g/dL Albumin/Globulin Ratio 1.0 (1.0-2.7) Lipase 171 U/L (73-393) (Ras Sylvester MD) CT/MRI/US Diagnostic Results CT/MRI/US Diagnostic Results : Imaging Test Ordered: abd/pelvis Impression No tract stones or hydronephrosis. Calcification in right hemipelvis likely her presents incidental phlebolith. Appendix is partially visualized and within normal limits. Air-fluid levels and mildly prominent small bowel loops in lower abdomen and pelvis may represent enteritis. Also wall thickening of the rectosigmoid made be due to incomplete distention. 1.5 cm cystic lesion in the left adnexa. No radiopaque stones in the gallbladder or pancreatitis. (Ras Sylvester MD) Last Vital Signs Date Time Temp Pulse Resp B/P (MAP) Pulse Ox O2 Delivery O2 Flow Rate FiO2 02/05/19 05:35 89 16 Room Air 02/05/19 05:25 98.4 98 Status: improved (Artis Melgar MD) Status: improved (Ras Sylvester MD) Disposition: HOME, SELF-CARE Condition: Improved Scripts Nitrofurantoin Monohyd/M-Cryst* (MACROBID 100 MG*) 100 Mg Capsule 100 MG ORAL EVERY 12 HOURS, #14 CAP Prov: Ras Sylvester MD 02/05/19 Ondansetron Odt* (ZOFRAN ODT*) 4 Mg Tab.rapdis 4 MG BC EVERY 8 HOURS, #4 TAB 1 Refill Prov: Ras Sylvester MD 02/05/19 Artis Melgar MD February 05, 2019 05:40 Ras Sylvester MD February 05, 2019 06:52
[2019-02-05] MEDS ORDERED: Morphine Sulfate 4mg/ml Inj (IV USE ONLY) IVP ONE (05:45)
[2019-02-05 06:08] LABS: APPEARANCE,URINE SLIGHTLY CLOUDY; BILIRUBIN, URINE NEGATIVE (NEGATIVE); COLOR,URINE BROWN; GLUCOSE, URINE (UA) NEGATIVE (NEGATIVE); KETONES,URINE 4+ (NEGATIVE); LEUKOCYTE ESTERASE ,URINE 2+ (NEGATIVE); NITRITE,URINE NEGATIVE (NEGATIVE); PH,URINE 5 (4.5-8.0); PROTEIN,URINE 2+ (NEGATIVE); UROBILINOGEN,URINE 1 MG/DL (0.0-1.0)
[2019-02-05 06:10] LABS: BASOPHILS % (AUTO) 1.1 % (0.0-2.0); EOSINOPHILS % (AUTO) 1.1 % (0.0-3.0); HEMATOCRIT 41.4 % (37.0-47.0); LYMPHOCYTES % (AUTO) 29.1 % (20.0-45.0); MEAN CORPUSCULAR VOLUME 85 FL (80-99); MONOCYTES % (AUTO) 4.4 % (1.0-10.0); NEUTROPHILS % (AUTO) 64.3 % (45.0-75.0); PLATELET COUNT 298 K/UL (150-450); RED BLOOD COUNT 4.87 M/UL (4.20-5.40); RED CELL DISTRIBUTION WIDTH 11.1 % (11.6-14.8); WHITE BLOOD COUNT 9.1 K/UL (4.8-10.8)
[2019-02-05 06:19] LABS: ANION GAP 10 mmol/L (5-15); BLOOD UREA NITROGEN 8 mg/dL (7-18); CALCIUM 9.4 MG/DL (8.5-10.1); CARBON DIOXIDE 28 MMOL/L (21-32); CHLORIDE 100 MMOL/L (98-107); POTASSIUM 2.8 MMOL/L (3.5-5.1); SODIUM 138 MMOL/L (136-145)
[2019-02-05 06:25] LABS: ALANINE AMINOTRANSFERASE 30 U/L (12-78); ALBUMIN 4.5 G/DL (3.4-5.0); ALKALINE PHOSPHATASE 49 U/L (46-116); ASPARTATE AMINO TRANSFERASE 28 U/L (15-37); BILIRUBIN,TOTAL 0.5 MG/DL (0.2-1.0)
[2019-02-05] MEDS ORDERED: cefTRIAXone 1 GM in NS 55 ML IVPB ONE (06:30)
[2019-02-05 06:45] VITALS: BP 111/64
[2019-02-05 07:59] VITALS: BP 118/62
[2019-02-05] MEDS ORDERED: ONDANSETRON ODT4 MG BC (08:15)
[2019-02-05] MEDS ORDERED: NITROFURANTOIN100 M2 ORAL (08:16)
[2019-02-05 08:31] VITALS: BP 118/62
--- NOTE | 2019-02-05 09:50 | Diagnostic Imaging Report ---
Indication: Abdominal pain for 2 days Technique: Spiral acquisitions obtained through the abdomen and pelvis. No oral contrast utilized, per emergency room physician request No IV contrast utilized, per referring physician request.. Multiplanar reconstructions were generated. Total dose length product 739.18 mGycm. CTDIvol(s) 13.88 mGy. Dose reduction achieved using automated exposure control Comparison: None Findings: The appendix is normal. No evidence of diverticulosis or diverticulitis. There are a few slightly prominent fluid-filled and gas-filled pelvic small bowel loops, but no carmelo small bowel distention. There is trace free pelvic fluid. No free intraperitoneal gas. The distal esophagus, stomach, duodenum are unremarkable. Lack of IV contrast limits assessment of solid organs. The liver, gallbladder, bile ducts, pancreas, spleen, adrenals, kidneys are all unremarkable. No retroperitoneal or mesenteric mass or adenopathy. Is no pelvic mass or adenopathy. Uterus and ovaries are unremarkable. Impression: Trace free pelvic fluid, presumably physiologic Few prominent gas and fluid-filled pelvic small bowel loops. This is a nonspecific finding, could indicate mild enteritis changes No acute process otherwise This essentially agrees with the preliminary interpretation provided overnight by [facility]erad[facility] service. The CT scanner at [facility] is accredited by the [employer] and the scans are performed using protocols designed to limit radiation exposure to as low as reasonably achievable to attain images of sufficient resolution adequate for diagnostic evaluation.
== END 2019-02-05 08:30 | disposition home or self-care (01) ==
LOC: EMR 05:41
DX: R10.84 Generalized abdominal pain (principal); N30.00 Acute cystitis without hematuria; E86.0 Dehydration; E87.6 Hypokalemia
CPT/HCPCS: 36415; 74176; 80053; 81003; 81025; 83690; 85025; 87086; 96361; 96365; 96375; 99284; J0696; J2270; J2405; J8499

== ENCOUNTER 2020-03-10 22:55 | Emergency (ER) | payer OTHER ==
[~2020-03-10] VITALS: Ht 162.6 cm; Wt 62.6 kg
[~2020-03-10 22:55] MED LIST changes: +ONDANSETRON ODT4 MG BC
--- NOTE | 2020-03-10 22:57 | NUR ---
called for triage. not in waiting room.
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
[2020-03-10 23:20] VITALS: BP 117/74
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
--- NOTE | 2020-03-10 23:30 | NUR ---
ED Nurse Note: Patient down to ct with limited radiology technician.
[2020-03-10] MEDS ORDERED: Lidocaine 1% Plain 30 ml INJ ONE (23:45)
--- NOTE | 2020-03-11 00:26 | Diagnostic Imaging Report ---
EXAM: CT Head Without Intravenous Contrast CLINICAL HISTORY: INJ TECHNIQUE: Axial computed tomography images of the head/brain without intravenous contrast. CTDI is 53.4 mGy and DLP is 1279.1 mGy-cm. One or more of the following dose reduction techniques were used: automated exposure control, adjustment of the mA and/or kV according to patient size, use of iterative reconstruction technique. Coronal reconstructions are performed. 317 images received COMPARISON: 08/26/17 FINDINGS: Brain: Unremarkable. No hemorrhage. No significant white matter disease. No edema. Ventricles: Unremarkable. No ventriculomegaly. Bones/joints: No intracranial hemorrhage or skull fracture. Soft tissues: Unremarkable. Sinuses: Partially visualized cyst versus polyp in right maxillary sinus measuring at least 2.3 cm, partially visualized. Mastoid air cells: Unremarkable as visualized. No mastoid effusion. IMPRESSION: No intracranial hemorrhage or skull fracture
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
[2020-03-11] MEDS ORDERED: IBUPROFEN600 M1 ORAL (00:42)
[2020-03-11] MEDS ORDERED: BACITRACIN ZIN1 EACH TOPIC (00:42)
--- NOTE | 2020-03-11 00:42 | Diagnostic Imaging Report ---
EXAM: CT Cervical Spine Without Intravenous Contrast CLINICAL HISTORY: INJ TECHNIQUE: Axial computed tomography images of the cervical spine without intravenous contrast. CTDI is 5.1 mGy and DLP is 160.5 mGy-cm. One or more of the following dose reduction techniques were used: automated exposure control, adjustment of the mA and/or kV according to patient size, use of iterative reconstruction technique. Coronal and sagittal reconstructions are performed. Coronal and sagittal reformatted images were created and reviewed. COMPARISON: No relevant prior studies available. FINDINGS: Vertebrae: Unremarkable. No fracture. Discs/spinal canal/neural foramina: No acute findings. Soft tissues: Unremarkable. IMPRESSION: No fracture or subluxation
[2020-03-11] MEDS ORDERED: Bacitracin Oint UD TOPIC ONE (00:45)
[2020-03-11 01:00] VITALS: BP 117/74
--- NOTE | 2020-03-11 01:00 | NUR ---
ER DISCHARGE NOTE: Cleansed and dressed repaired laceration per ermd order. Patient is cleared to be discharged per ERMD, pt is aox4, on room air, with stable vital signs. pt was given dc and prescription instructions, pt was able to verbalize understanding, pt id band removed. pt is able to ambulate with steady gait. pt took all belongings.
== END 2020-03-11 01:00 | disposition home or self-care (01) ==
LOC: EMR 23:25
DX: S01.81XA Laceration without foreign body of other part of head, initial encounter (principal); S06.9X9A Unspecified intracranial injury with loss of consciousness of unspecified duration, initial encounter; V49.9XXA Car occupant (driver) (passenger) injured in unspecified traffic accident, initial encounter; Y92.410 Unspecified street and highway as the place of occurrence of the external cause; J33.8 Other polyp of sinus
CPT/HCPCS: 12011; 70450; 70486; 72125; J2001; Z7502; 99284

== ENCOUNTER 2020-03-13 13:30 | Emergency (ER) | payer OTHER ==
[~2020-03-13] VITALS: Ht 162.6 cm; Wt 62.6 kg
[~2020-03-13 13:30] MED LIST changes: +BACITRACIN ZIN1 EACH TOPIC; +IBUPROFEN600 M1 ORAL
[2020-03-13 13:37] VITALS: BP 94/61
--- NOTE | 2020-03-13 14:08 | Emergency Room Report ---
History of Present Illness General Chief Complaint: Wound Recheck/Suture Removal Source: Patient Present Illness HPI 24-year-old female with no signal past medical history here requesting suture removal right upper eyelid. Sutures were placed in 1 week ago at [facility]. Patient still has some ecchymosis periorbital. Patient was offered to go to the room however while waiting for a room to be available patient decided to have the sutures removed in the hallway as she was in a hurry. 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 Patient reports that she does not work for the next 3 days and last Friday off. I made a note detailed in regards to when she can return to work and advised her to follow-up with primary doctor for more days of as needed. Patient no apparent distress. No bleeding noted. Allergies: Coded Allergies: No Known Allergies (Unverified , 10/08/18) COVID-19 Screening Contact w/high risk pt: No Recent Travel to affected area: No Experienced COVID-19 symptoms?: No COVID-19 Testing performed CHIEF DESIGN ENGINEER: No Patient History Past Medical History: see triage record Past Surgical History: none Pertinent Family History: none Last Menstrual Period: 03/02/20 Now: No Immunizations: UTD Reviewed Nursing Documentation: PMH: Agreed; PSxH: Agreed Nursing Documentation-PMH Past Medical History: No Stated History Hx Cardiac Problems: No Hx Hypertension: No Hx Pacemaker: No Hx Asthma: No Hx COPD: No Hx Diabetes: No Hx Cancer: No Hx Gastrointestinal Problems: No Hx Dialysis: No Hx Neurological Problems: No Hx Cerebrovascular Accident: No Hx Seizures: No Review of Systems All Other Systems: negative except mentioned in HPI Physical Exam Vital Signs Date Time Temp Pulse Resp B/P (MAP) Pulse Ox O2 Delivery O2 Flow Rate FiO2 03/13/20 13:37 98.6 78 16 94/61 99 Room Air Sp02 EP Interpretation: reviewed, normal General Appearance: well appearing, no apparent distress Head: normocephalic, atraumatic ENT: hearing grossly normal, normal voice Respiratory: no respiratory distress, speaking full sentences Gastrointestinal: non tender Rectal: deferred Genitourinary: no CVA tenderness Musculoskeletal: gait/station normal Neurologic: alert, oriented Psychiatric: normal inspection, judgement/insight normal, mood/affect normal Skin: laceration - Repaired laceration without any pus drainage right upper eyelid with some ecchymosis periorbital Lymphatic: no adenopathy Procedures Additional Procedure Procedure Narrative 5 sutures removed without any complication and one Steri-Strip applied Medical Decision Making PA Attestation All my diagnosis and treatment plans were reviewed ad discussed with my supervising physician Dr. Charles Diagnostic Impression: Primary Impression: Encounter for removal of sutures ER Course 24-year-old female with no signal past medical history here requesting suture removal right upper eyelid. Sutures were placed in 1 week ago at [facility]. Patient still has some ecchymosis periorbital. Patient was offered to go to the room however while waiting for a room to be available patient decided to have the sutures removed in the hallway as she was in a hurry. 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 Patient reports that she does not work for the next 3 days and last Friday off. I made a note detailed in regards to when she can return to work and advised her to follow-up with primary doctor for more days of as needed. Patient no apparent distress. No bleeding noted. Ddx considered but are not limited to : Superficial laceration, deep laceration , tendon involvement with laceration, laceration with foreign body Vital signs: are WNL, pt. is afebrile H&PE are most consistent with: Suture removal ORDERS: Bactroban ointment ED INTERVENTIONS: 5 sutures were removed with no problem and Steri-Strips applied DISCHARGE: At this time pt. is stable for d/c to home. Will provide printed patient care instructions, and any necessary prescriptions. Care plan and follow up instructions have been discussed with the patient prior to discharge. Patient to follow primary doctor, take medication as directed, worsening symptoms return to the emergency room Last Vital Signs Date Time Temp Pulse Resp B/P (MAP) Pulse Ox O2 Delivery O2 Flow Rate FiO2 03/13/20 13:37 98.6 78 16 94/61 (72) 99 Room Air Disposition: HOME, SELF-CARE Condition: Stable Scripts Mupirocin* (MUPIROCIN*) 22 Gm Oint...g. 1 APPLIC TOPIC THREE TIMES A DAY, #22 GM Prov: Thuan Mckeon 03/13/20 Patient Instructions: Wound Check Thuan Mckeon Mar 13, 2020 14:08
[2020-03-13] MEDS ORDERED: MUPIROCIN22 GM TOPIC (14:09)
[2020-03-13 14:10] VITALS: BP 94/61
== END 2020-03-13 14:15 | disposition home or self-care (01) ==
LOC: EMR 14:04
DX: Z48.02 Encounter for removal of sutures (principal); S00.11XA Contusion of right eyelid and periocular area, initial encounter; X58.XXXA Exposure to other specified factors, initial encounter; Y92.9 Unspecified place or not applicable
CPT/HCPCS: 99281

== ENCOUNTER 2020-03-31 20:45 | Emergency (ER) | payer OTHER ==
[~2020-03-31] VITALS: Ht 162.6 cm; Wt 67.1 kg
[~2020-03-31 20:45] MED LIST changes: +MUPIROCIN22 GM TOPIC
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
[2020-03-31 21:02] VITALS: BP 94/61
[2020-03-31 21:33] LABS: APPEARANCE,URINE SLIGHTLY CLOUDY; BILIRUBIN, URINE NEGATIVE (NEGATIVE); COLOR,URINE PALE YELLOW; GLUCOSE, URINE (UA) NEGATIVE (NEGATIVE); KETONES,URINE NEGATIVE (NEGATIVE); LEUKOCYTE ESTERASE ,URINE 2+ (NEGATIVE); NITRITE,URINE NEGATIVE (NEGATIVE); PH,URINE 5 (4.5-8.0); PROTEIN,URINE 2+ (NEGATIVE); UROBILINOGEN,URINE NORMAL MG/DL (0.0-1.0)
--- NOTE | 2020-03-31 22:40 | NUR ---
ED Nurse Note: ERMD performing pelvic exam at bedside accompanied by female RN.
--- NOTE | 2020-03-31 22:44 | Emergency Room Report ---
History of Present Illness General Chief Complaint: Female Urogenital Problems Source: Patient Present Illness HPI Patient presents with perineal burning and pain for several days. This began after she used Wilks. She is in a stable relationship with a female partner. She denies any other known trauma. She is on her menstruation at this time. There is no fevers or chills. She denies dysuria per se but has some burning when she wipes herself. Aside from menstrual blood she does not have a significant discharge. She has taken a picture of with the lesions look like. She has a low suspicion for possible sexually transmitted disease at this time. She does not believe she is . She has an IUD present. She denies fever chills. She has never been . She does not believe that she is at this time. No nausea vomiting or diarrhea. No lymph nodes swelling. No rashes. She reported never being in the past however there are diagnoses for threatened miscarriage and also hyperemesis gravidarum. Allergies: Coded Allergies: No Known Allergies (Unverified , 10/08/18) COVID-19 Screening Contact w/high risk pt: No Recent Travel to affected area: No Experienced COVID-19 symptoms?: No COVID-19 Testing performed DEVELOPMENT TECHNICIAN: No Patient History Past Medical History: see triage record Social History: Reports: smoking Social History Narrative In a stable relationship Last Menstrual Period: current Reviewed Nursing Documentation: PMH: Agreed; PSxH: Agreed Nursing Documentation-PMH Past Medical History: No Stated History Hx Cardiac Problems: No Hx Hypertension: No Hx Pacemaker: No Hx Asthma: No Hx COPD: No Hx Diabetes: No Hx Cancer: No Hx Gastrointestinal Problems: No Hx Dialysis: No Hx Neurological Problems: No Hx Cerebrovascular Accident: No Hx Seizures: No Review of Systems Constitutional: Reports: see HPI Gastrointestinal: Reports: see HPI Genitourinary: Reports: see HPI Musculoskeletal: Denies: joint pain Skin: Reports: see HPI Psychiatric: Reports: anxiety Physical Exam Vital Signs Date Time Temp Pulse Resp B/P (MAP) Pulse Ox O2 Delivery O2 Flow Rate FiO2 03/31/20 20:52 98.2 97 16 94/61 (72) 96 Room Air Sp02 EP Interpretation: reviewed, normal General Appearance: well appearing, no apparent distress, GCS 15 Head: normocephalic Eyes: bilateral eye normal inspection, bilateral eye PERRL, bilateral eye EOMI ENT: moist mucus membranes Cardiovascular #1: regular rate, rhythm Gastrointestinal: normal inspection, non tender, soft Genitourinary: no CVA tenderness, adnexa normal, bladder normal, cervix normal - With IUD string, ext genitalia/vag normal - Except for small perineal abrasion , os closed, urethra normal, uterus normal Musculoskeletal: gait/station normal Neurologic: alert, grossly normal Psychiatric: mood/affect normal Skin: normal color, no rash, warm/dry Medical Decision Making Diagnostic Impression: Primary Impression: Perineal abrasion Additional Impression: UTI (urinary tract infection) Qualified Codes: N30.00 - Acute cystitis without hematuria ER Course Patient presents with perineal discomfort. Initially the photographs that I was shown suggested that she might have herpes. Based on her genital exam this is excluded. Differential then centered around urinary tract infection, perineal abrasion amongst others. Urinalysis was indicate. Urinalysis with some pyuria and menstrual blood. Patient requested treatment with antibiotics at this time. Discussed local care with patient and abstaining from use of Wilks. Patient also advised that she needs to follow-up with her ASSISTANT SUPERINTENDENT. Patient stable for outpatient observation and treatment. Laboratory Tests Test 03/31/20 21:00 03/31/20 21:03 Chlamydia trachomatis RNA Pending Neisseria gonorrhoeae RNA Pending Urine Color Pale yellow Urine Appearance Slightly cloudy Urine pH 5 (4.5-8.0) Urine Specific Pillager 1.015 (1.005-1.035) Urine Protein 2+ (NEGATIVE) H Urine Glucose (UA) Negative (NEGATIVE) Urine Ketones Negative (NEGATIVE) Urine Blood 3+ (NEGATIVE) H Urine Nitrite Negative (NEGATIVE) Urine Bilirubin Negative (NEGATIVE) Urine Urobilinogen Normal MG/DL (0.0-1.0) Urine Leukocyte Esterase 2+ (NEGATIVE) H Urine RBC 10-15 /HPF (0 - 2) H Urine WBC 5-10 /HPF (0 - 2) H Urine Squamous Epithelial Cells Few /LPF (NONE/OCC) Urine Bacteria Few /HPF (NONE) Urine HCG, Qualitative Negative (NEGATIVE) Status: improved Disposition: HOME, SELF-CARE Condition: Improved Scripts Nitrofurantoin Monohyd/M-Cryst* (MACROBID 100 MG*) 100 Mg Capsule 100 MG ORAL EVERY 12 HOURS, #14 CAP Prov: Ras Sylvester MD 03/31/20 Bacitracin (Bacitracin) 28.4 Gm Oint...g. 1 APPLIC TOPIC BID, #14 GM Prov: Ras Sylvester MD 03/31/20 Referrals: [facility],REFERRING (PCP) Ras Sylvester MD Mar 31, 2020 22:44
[2020-03-31] MEDS ORDERED: NITROFURANTOIN100 M2 ORAL (22:48)
[2020-03-31] MEDS ORDERED: BACITRACIN15 GM TOPIC (22:48)
[2020-03-31 22:55] VITALS: BP 94/61
--- NOTE | 2020-03-31 22:55 | NUR ---
ER DISCHARGE NOTE: Patient is cleared to be discharged per ERMD, pt is aox4, on room air, with stable vital signs. pt was given dc and prescription instructions, pt was able to verbalize understanding, pt id band and iv site removed without complications. pt is able to ambulate with steady gait. pt took all belongings.
== END 2020-03-31 22:55 | disposition home or self-care (01) ==
LOC: EMR 21:07
DX: S30.814A Abrasion of vagina and vulva, initial encounter (principal); N30.00 Acute cystitis without hematuria; X58.XXXA Exposure to other specified factors, initial encounter; Y92.9 Unspecified place or not applicable; F17.200 Nicotine dependence, unspecified, uncomplicated; F41.9 Anxiety disorder, unspecified
CPT/HCPCS: 81003; 81025; 87491; 87590; Z7502; 99283

== ENCOUNTER 2020-07-22 07:13 | Emergency (ER) | payer OTHER ==
[~2020-07-22] VITALS: Ht 162.6 cm; Wt 61.2 kg
[2020-07-22 07:32] VITALS: BP 109/88
--- NOTE | 2020-07-22 07:50 | NUR ---
ED Nurse Note: Pt ambulated to ED from home d/t bodyaches, diarrhea/nausea/vomiting and chill that started last night and dry cough that started this morning. Pt is AOx4, calm and cooperative to care, VSS, on RA, afebrile on triage. Placed on room; doors kept close at all times.
--- NOTE | 2020-07-22 08:05 | NUR ---
ED Nurse Note: blood and urine specimen collected, sent to lab.
[2020-07-22 08:17] LABS: BILIRUBIN, URINE NEGATIVE (NEGATIVE); GLUCOSE, URINE (UA) NEGATIVE (NEGATIVE); KETONES,URINE 1+ (NEGATIVE); LEUKOCYTE ESTERASE ,URINE 3+ (NEGATIVE); NITRITE,URINE NEGATIVE (NEGATIVE); PH,URINE 5 (4.5-8.0); PROTEIN,URINE NEGATIVE (NEGATIVE); UROBILINOGEN,URINE NORMAL MG/DL (0.0-1.0)
[2020-07-22 08:18] LABS: BASOPHILS % (AUTO) 2.4 % (0.0-2.0); EOSINOPHILS % (AUTO) 1.4 % (0.0-3.0); HEMATOCRIT 40.8 % (37.0-47.0); LYMPHOCYTES % (AUTO) 12.3 % (20.0-45.0); MEAN CORPUSCULAR VOLUME 82 FL (80-99); MONOCYTES % (AUTO) 5.2 % (1.0-10.0); NEUTROPHILS % (AUTO) 78.8 % (45.0-75.0); PLATELET COUNT 233 K/UL (150-450); RED BLOOD COUNT 4.96 M/UL (4.20-5.40); RED CELL DISTRIBUTION WIDTH 11.4 % (11.6-14.8); WHITE BLOOD COUNT 10.1 K/UL (4.8-10.8)
[2020-07-22 08:19] LABS: APPEARANCE,URINE SLIGHTLY CLOUDY
[2020-07-22 08:29] LABS: ANION GAP 10 mmol/L (5-15); BLOOD UREA NITROGEN 12 mg/dL (7-18); CALCIUM 8.7 MG/DL (8.5-10.1); CARBON DIOXIDE 23 MMOL/L (21-32); CHLORIDE 102 MMOL/L (98-107); CREATININE 0.9 MG/DL (0.55-1.30); POTASSIUM 3.8 MMOL/L (3.5-5.1); SODIUM 135 MMOL/L (136-145)
[2020-07-22 08:31] LABS: COLOR,URINE YELLOW
[2020-07-22 08:38] LABS: ALANINE AMINOTRANSFERASE 19 U/L (12-78); ALBUMIN 3.9 G/DL (3.4-5.0); ALKALINE PHOSPHATASE 53 U/L (46-116); ASPARTATE AMINO TRANSFERASE 18 U/L (15-37); BILIRUBIN,TOTAL 0.3 MG/DL (0.2-1.0)
[2020-07-22] MEDS ORDERED: NITROFURANTOIN100 M2 ORAL (09:08)
[2020-07-22] MEDS ORDERED: TYLENOL EXTRA500 MG ORAL (09:08)
[2020-07-22 09:17] VITALS: BP 110/90
--- NOTE | 2020-07-22 10:03 | Emergency Room Report ---
History of Present Illness General Chief Complaint: Flu Like Symptoms Source: Patient Present Illness HPI 25-year-old female presents the ED for evaluation. Complaining of sore throat, body aches chills weakness x1 day. Pain is dull, 7 out of 10, nonradiating. Afebrile in triage. Denies recent travel or sick contacts. Denies cough. No other aggravating relieving factors. Denies any other associated symptoms Allergies: Coded Allergies: No Known Allergies (Unverified , 10/08/18) COVID-19 Screening Contact w/high risk pt: No Recent Travel to affected area: No Experienced COVID-19 symptoms?: Yes COVID-19 Testing performed FIELD COORDINATOR: No Patient History Past Medical History: none Past Surgical History: none Pertinent Family History: none Social History: Denies: smoking, alcohol use, drug use Last Menstrual Period: 07/03/20 Now: No Immunizations: UTD Reviewed Nursing Documentation: PMH: Agreed; PSxH: Agreed Nursing Documentation-PMH Past Medical History: No History, Except For Hx Cardiac Problems: No - anemia Hx Hypertension: No Hx Pacemaker: No Hx Asthma: No Hx COPD: No Hx Diabetes: No Hx Cancer: No Hx Gastrointestinal Problems: No Hx Dialysis: No Hx Neurological Problems: No Hx Cerebrovascular Accident: No Hx Seizures: No Review of Systems All Other Systems: negative except mentioned in HPI Physical Exam Vital Signs Date Time Temp Pulse Resp B/P (MAP) Pulse Ox O2 Delivery O2 Flow Rate FiO2 07/22/20 07:16 99.0 99 17 109/88 (95) 96 Room Air Sp02 EP Interpretation: reviewed, normal General Appearance: no apparent distress, alert, GCS 15, non-toxic Head: normocephalic, atraumatic Eyes: bilateral eye normal inspection, bilateral eye PERRL ENT: hearing grossly normal, normal pharynx, no angioedema, normal voice Neck: full range of motion, supple/symm/no masses Respiratory: chest non-tender, lungs clear, normal breath sounds, speaking full sentences Cardiovascular #1: regular rate, rhythm, no edema Cardiovascular #2: 2+ carotid (R), 2+ carotid (L), 2+ radial (R), 2+ radial (L), 2+ dorsalis pedis (R), 2+ dorsalis pedis (L) Gastrointestinal: normal bowel sounds, non tender, soft, non-distended, no guarding, no rebound Rectal: deferred Genitourinary: normal inspection, no CVA tenderness Musculoskeletal: back normal, normal range of motion, gait/station normal, non- tender Neurologic: alert, motor strength/tone normal, oriented x3, sensory intact, responsive, speech normal Psychiatric: judgement/insight normal, memory normal, mood/affect normal, no suicidal/homicidal ideation Reflexes: 3+ bicep (R), 3+ bicep (L), 3+ tricep (R), 3+ tricep (L), 3+ knee (R), 3+ knee (L) Lymphatic: no adenopathy Medical Decision Making Diagnostic Impression: Primary Impression: UTI (urinary tract infection) Qualified Codes: N39.0 - Urinary tract infection, site not specified ER Course Hospital Course 25-year-old female presents with sore throat, body aches chills differential diagnosis: URI, UTI, pharyngitis Clinical course Patient placed on stretcher. After initial history, physical exam reveals female no acute distress. No pharyngeal erythema. No lymphadenopathy. Lungs clear. Remainder of exam unremarkable. I ordered labs, IV fluids Labs - no leukocytosis, no electrolyte abnormalities, LFTs normal, UA + bacteria On reassessment patient states she feels better after IV hydration. Discussed findings with patient. Afebrile, nontoxic-appearing. Safe for discharge with close outpatient follow-up. States she has a PMD I feel this is a highly complex case requiring extensive working including EKG/Rhythm strip, Xray/CT/US, Blood/urine lab work, repeat exams while in ED, and administration of strong opiates/narcotics for pain control, admission to hospital or close patient follow up. Diagnosis - UTI Stable and discharged to home with prescriptions for Rx Macrobid, Tylenol. Followup with PMD. Return to ED if symptoms recur or worsen Laboratory Tests Test 07/22/20 07:50 White Blood Count 10.1 K/UL (4.8-10.8) Red Blood Count 4.96 M/UL (4.20-5.40) Hemoglobin 14.0 G/DL (12.0-16.0) Hematocrit 40.8 % (37.0-47.0) Mean Corpuscular Volume 82 FL (80-99) Mean Corpuscular Hemoglobin 28.3 PG (27.0-31.0) Mean Corpuscular Hemoglobin Concent 34.4 G/DL (32.0-36.0) Red Cell Distribution Width 11.4 % (11.6-14.8) L Platelet Count 233 K/UL (150-450) Mean Platelet Volume 6.3 FL (6.5-10.1) L Neutrophils (%) (Auto) 78.8 % (45.0-75.0) H Lymphocytes (%) (Auto) 12.3 % (20.0-45.0) L Monocytes (%) (Auto) 5.2 % (1.0-10.0) Eosinophils (%) (Auto) 1.4 % (0.0-3.0) Basophils (%) (Auto) 2.4 % (0.0-2.0) H Urine Color Yellow Urine Appearance Slightly cloudy Urine pH 5 (4.5-8.0) Urine Specific [place] 1.025 (1.005-1.035) Urine Protein Negative (NEGATIVE) Urine Glucose (UA) Negative (NEGATIVE) Urine Ketones 1+ (NEGATIVE) H Urine Blood 3+ (NEGATIVE) H Urine Nitrite Negative (NEGATIVE) Urine Bilirubin Negative (NEGATIVE) Urine Urobilinogen Normal MG/DL (0.0-1.0) Urine Leukocyte Esterase 3+ (NEGATIVE) H Urine RBC 5-10 /HPF (0 - 2) H Urine WBC 15-20 /HPF (0 - 2) H Urine Squamous Epithelial Cells Moderate /LPF (NONE/OCC) H Urine Bacteria Few /HPF (NONE) Urine HCG, Qualitative Negative (NEGATIVE) Sodium Level 135 MMOL/L (136-145) L Potassium Level 3.8 MMOL/L (3.5-5.1) Chloride Level 102 MMOL/L (98-107) Carbon Dioxide Level 23 MMOL/L (21-32) Anion Gap 10 mmol/L (5-15) Blood Urea Nitrogen 12 mg/dL (7-18) Creatinine 0.9 MG/DL (0.55-1.30) Estimat Glomerular Filtration Rate > 60 mL/min (>60) Glucose Level 105 MG/DL (74-106) Calcium Level 8.7 MG/DL (8.5-10.1) Total Bilirubin 0.3 MG/DL (0.2-1.0) Aspartate Amino Transf (AST/SGOT) 18 U/L (15-37) Alanine Aminotransferase (ALT/SGPT) 19 U/L (12-78) Alkaline Phosphatase 53 U/L (46-116) Total Protein 7.7 G/DL (6.4-8.2) Albumin 3.9 G/DL (3.4-5.0) Globulin 3.8 g/dL Albumin/Globulin Ratio 1.0 (1.0-2.7) Lipase 127 U/L (73-393) Last Vital Signs Date Time Temp Pulse Resp B/P (MAP) Pulse Ox O2 Delivery O2 Flow Rate FiO2 07/22/20 09:17 98.5 87 18 110/90 99 Room Air Status: improved Disposition: HOME, SELF-CARE Condition: Stable Scripts Nitrofurantoin Monohyd/M-Cryst* (MACROBID 100 MG*) 100 Mg Capsule 100 MG ORAL EVERY 12 HOURS for 7 Days, CAP Prov: Catarino Zhong MD 07/22/20 Acetaminophen* (TYLENOL EXTRA STRENGTH*) 500 Mg Tablet 500 MG ORAL Q8H PRN for Prn Headache/Temp > 101, #30 TAB 0 Refills Prov: Catarino Zhong MD 07/22/20 Referrals: [facility],REFERRING (PCP) Patient Instructions: Dysuria Catarino Zhong MD Jul 22, 2020 10:03
== END 2020-07-22 09:17 | disposition home or self-care (01) ==
LOC: EMR 07:32
DX: N39.0 Urinary tract infection, site not specified (principal); R07.0 Pain in throat
CPT/HCPCS: 36415; 80053; 81003; 81025; 83690; 85025; 87086; 96361; 96374; 96375; J2405; J7030; S0028; Z7502; 99284